=== PATIENT | female | born 1955 | race Caucasian/White ===

== ENCOUNTER 2018-09-21 10:58 | Inpatient (IN) | payer BC, OTHER ==
[~2018-09-21] VITALS: Ht 160 cm; Wt 73.0 kg
[2018-09-21] VITALS (8 sets, daily range): BP systolic 150–182; BP diastolic 68–98
[2018-09-21] MEDS ORDERED: naloxone 2mg/2ml inj IV ONE ×2 (11:35→11:50)
[2018-09-21] MEDS ORDERED: normal saline 1000ML IV soln IVB ONE ×2 (11:35)
--- NOTE | 2018-09-21 11:43 | NUR ---
admin narcan, no change in pt condition. pt arousable to voice, unable to stay awake.
--- NOTE | 2018-09-21 12:25 | NUR ---
NPA PLACED WITH 15L N/C. DR NUNES IN BEDSIDE TO ASSESS PT.
[2018-09-21 12:31] LABS: BASOPHILS % (AUTO) 0.1 % (0-1); EOSINOPHILS % (AUTO) 0 % (0-6); HEMOGLOBIN 14.7 g/dl (12.0-16.0); LYMPHOCYTES # (AUTO) 0.9 X10'3 (1.1-4.8); LYMPHOCYTES % (AUTO) 9.4 % (21-51); MEAN CORPUSCULAR HEMOGLOBIN 29.1 PG (27.0-31.0); MEAN CORPUSCULAR HGB CONC 33.3 g/dL (33.0-36.5); MEAN CORPUSCULAR VOLUME 87.3 FL (78-98); MEAN PLATELET VOLUME 7.7 FL (7.4-10.4); MONOCYTES # (AUTO) 0.6 X10'3 (0-0.9); NEUTROPHILS # (AUTO) 7.9 X10'3 (1.8-7.7); NEUTROPHILS % (AUTO) 84.5 % (42-75); PLATELET COUNT 275 X10'3 (140-440); RED BLOOD COUNT 5.04 X10'6 (4.20-5.60); WHITE BLOOD COUNT 9.4 X10'3 (4.5-11.0)
--- NOTE | 2018-09-21 12:46 | NUR ---
PATIENT MOVED FROM ROOM 11 TO ER ROOM #4. PATIENT IS OBTUNDED AND SLIGHTLY RESTLESS AT PRESENT. SECOND IV SITE ESTABLISHED. O2 AT 5LPM/NC. O2 SAT 99%. TEMP FOLE INSERTED AND DRAINING LARGE AMOUNT YELLOW URINE. AT THE BEDSIDE.
[2018-09-21 12:48] LABS: URINE AMPHETAMINE SCREEN NEGATIVE (Neg); URINE BARBITUATE SCREEN NEGATIVE (Neg); URINE BENZODIAZEPINES SCREEN NEGATIVE (Neg); URINE CANNABINOID SCREEN NEGATIVE (Neg); URINE COCAINE SCREEN NEGATIVE (Neg); URINE METHADONE SCREEN NEGATIVE (Neg); URINE OPIATE SCREEN NEGATIVE (Neg); URINE PHENCYCLIDINE SCREEN NEGATIVE (Neg)
[2018-09-21 13:05] LABS: ALANINE AMINOTRANSFERASE 32 U/L (12-78); ALBUMIN 3.9 G/DL (3.4-5.0); ALBUMIN/GLOBULIN RATIO 1.2 (1.1-1.5); ALKALINE PHOSPHATASE 81 IU/L (46-116); ANION GAP 6 (8-16); ASPARTATE AMINO TRANSFERASE 26 U/L (10-37); BILIRUBIN,TOTAL 0.5 MG/DL (0.1-1.0); BLOOD UREA NITROGEN 9 MG/DL (7-18); BUN/CREATININE RATIO 12.3 (6.6-38.0); CALCIUM 8.9 MG/DL (8.5-10.1); CHLORIDE 102 MMOL/L (99-107); CREATININE 0.73 MG/DL (0.40-0.90); GLUCOSE 136 MG/DL (70-104); POTASSIUM 3.6 MMOL/L (3.5-5.1); SODIUM 135 MMOL/L (135-145); TOTAL CARBON DIOXIDE 27.2 MMOL/L (24-32); TOTAL PROTEIN 7.2 G/DL (6.4-8.2); eGFR 80 ML/MIN
[2018-09-21 13:10] LABS: ACETAMINOPHEN < 2.0 UG/ML (10-30)
[2018-09-21 13:11] LABS: ETHANOL < 0.010 GM/DL (0.0-0.010); VALPROATE < 3.0 UG/ML (50-100)
--- NOTE | 2018-09-21 14:40 | NUR ---
Sun HOWARD NP HERE AND SPEAKING WITH ABOUT PATIENT'S MEDICAL HISTORY AND EVENTS OF THE DAY.
[2018-09-21] MEDS ORDERED: ondansetron/PF 4mg/2ml inj IV PRN (15:35)
[2018-09-21] MEDS ORDERED: metoclopramide 5 mg/ml inj IV PRN (15:35)
--- NOTE | 2018-09-21 16:31 | NUR ---
REPORT TO ANNY SALCIDO ON ICU. TAKEN TO INPATIENT ROOM VIA GURNEY, IN SERIOUS, STABLE CONDITION. BELONGINGS SENT WITH PATIENT. MONITOR INTACT WITH ALARMS SET.
--- NOTE | 2018-09-21 16:45 | NUR ---
pt received pt by fletcher to room 2041. pt opens eyes to name. wont speak at present time. very sleepy with rr of 28 to waking up and setting up. jackie applied for safety of self and piv's
[2018-09-21 16:46] LABS: ABG BASE EXCESS 1.9 mmol/L (-2.0-3.0); ABG HCO3 25.8 mmol/L (22.0-26.0); ABG PCO2 (T) 38.2 mmHg (32.0-45.0); ABG PH (T) 7.447 (7.350-7.450); ABG PO2 (T) 65.4 mmHg (83-108); ALLEN'S TEST Positive; FCOHb 0.3 % (0.5-1.5); FLOW 2 L/min; FMetHb 0.3 % (0.3-1.12); FO2Hb 91.4 % (94-100); TOTAL HEMOGLOBIN 15.4 G/dl (12.0-16.0)
--- NOTE | 2018-09-21 18:15 | NUR ---
Patient in room ICU 2041. I have received report and had the opportunity to ask questions and assume patient care.
--- NOTE | 2018-09-21 18:30 | NUR ---
PT VOMITED. SUCTIONED PT. VOMIT CAME OUT PATIENTS NOSE CLOGGING AIRWAY. AIRWAY SUCTIONED AND REMOVED.
--- NOTE | 2018-09-21 19:00 | NUR ---
pt opens her eyes to voice and shaking but quickly falls asleep soon after. pt does not respond to questions or follow commands. will continue to monitor.
[2018-09-21] MEDS ORDERED: HALO5TAB PO (19:33)
[2018-09-21] MEDS ORDERED: TRAZ150T78 PO (19:33)
[2018-09-21] MEDS ORDERED: MIRT7.5T11 PO (19:33)
--- NOTE | 2018-09-21 20:05 | NUR ---
POISON CONTROL CONTACTED. RECOMMENDED ORDERS INCLUDE EKG, NEW TOX SCREEN, AND CBC. MD NOTIFIED OF RECOMMENDED ORDERS.
[2018-09-21] MEDS: famotidine/PF 10 mg/ml inj IV SCH (20:26)
[2018-09-21] MEDS: normal saline 1000ml 1,000 ML IV SCH (20:27)
[2018-09-21 21:52] LABS: BASOPHILS % (AUTO) 0.1 % (0-1); EOSINOPHILS % (AUTO) 0.1 % (0-6); HEMOGLOBIN 15.3 g/dl (12.0-16.0); LYMPHOCYTES # (AUTO) 0.7 X10'3 (1.1-4.8); LYMPHOCYTES % (AUTO) 5.3 % (21-51); MEAN CORPUSCULAR HEMOGLOBIN 29.3 PG (27.0-31.0); MEAN CORPUSCULAR HGB CONC 33.3 g/dL (33.0-36.5); MEAN CORPUSCULAR VOLUME 87.8 FL (78-98); MEAN PLATELET VOLUME 8.1 FL (7.4-10.4); MONOCYTES # (AUTO) 0.7 X10'3 (0-0.9); MONOCYTES % (AUTO) 5.4 % (2-12); NEUTROPHILS # (AUTO) 11.7 X10'3 (1.8-7.7); NEUTROPHILS % (AUTO) 89.1 % (42-75); PLATELET COUNT 293 X10'3 (140-440); RED BLOOD COUNT 5.23 X10'6 (4.20-5.60); RED CELL DISTRIBUTION WIDTH 15.2 % (11.5-14.5); WHITE BLOOD COUNT 13.1 X10'3 (4.5-11.0)
[2018-09-21 22:32] LABS: ALANINE AMINOTRANSFERASE 26 U/L (12-78); ALBUMIN 3.9 G/DL (3.4-5.0); ALBUMIN/GLOBULIN RATIO 1.1 (1.1-1.5); ALKALINE PHOSPHATASE 85 IU/L (46-116); ANION GAP 8 (8-16); ASPARTATE AMINO TRANSFERASE 20 U/L (10-37); BILIRUBIN,TOTAL 0.4 MG/DL (0.1-1.0); BLOOD UREA NITROGEN 6 MG/DL (7-18); BUN/CREATININE RATIO 8.2 (6.6-38.0); CALCIUM 8.8 MG/DL (8.5-10.1); CHLORIDE 104 MMOL/L (99-107); CREATININE 0.73 MG/DL (0.40-0.90); GLUCOSE 141 MG/DL (70-104); POTASSIUM 3.7 MMOL/L (3.5-5.1); SODIUM 140 MMOL/L (135-145); TOTAL CARBON DIOXIDE 27.6 MMOL/L (24-32); TOTAL PROTEIN 7.5 G/DL (6.4-8.2); TROPONIN I < 0.04 NG/ML (0.0-0.05); eGFR 80 ML/MIN
[2018-09-21 22:37] LABS: ACETAMINOPHEN < 2.0 UG/ML (10-30); VALPROATE < 3.0 UG/ML (50-100)
--- NOTE | 2018-09-21 23:20 | NUR ---
poison control called for follow up. recommended redrawing tox screen in am. notified.
[2018-09-22] VITALS (23 sets, daily range): BP systolic 102–172; BP diastolic 42–82
--- NOTE | 2018-09-22 01:22 | NUR ---
pt still responds to voice but remains obtunded. pt still doesn't answer questions or follow commands. will continue to monitor
--- NOTE | 2018-09-22 04:23 | NUR ---
pt o2 sat dropped to 87%. pt put on a non rebreather mask. pt airway is gurgling. nt suction ordered
[2018-09-22 04:26] LABS: ABG BASE EXCESS -3.6 mmol/L (-2.0-3.0); ABG HCO3 22.5 mmol/L (22.0-26.0); ABG PCO2 (T) 43.8 mmHg (32.0-45.0); ABG PH (T) 7.327 (7.350-7.450); ABG PO2 (T) 66.2 mmHg (83-108); ALLEN'S TEST Positive; FCOHb 0.2 % (0.5-1.5); FLOW 15 L/min; FMetHb 0.1 % (0.3-1.12); FO2Hb 92.7 % (94-100); PATIENT TEMPERATURE 36.6; TOTAL HEMOGLOBIN 15.6 G/dl (12.0-16.0)
[2018-09-22 05:49] LABS: BASOPHILS % (AUTO) 0 % (0-1); EOSINOPHILS % (AUTO) 0.1 % (0-6); HEMATOCRIT 46.2 % (35.0-45.0); HEMOGLOBIN 15.4 g/dl (12.0-16.0); LYMPHOCYTES # (AUTO) 0.8 X10'3 (1.1-4.8); LYMPHOCYTES % (AUTO) 5.8 % (21-51); MEAN CORPUSCULAR HEMOGLOBIN 29.3 PG (27.0-31.0); MEAN CORPUSCULAR HGB CONC 33.3 g/dL (33.0-36.5); MEAN PLATELET VOLUME 7.7 FL (7.4-10.4); MONOCYTES # (AUTO) 0.7 X10'3 (0-0.9); MONOCYTES % (AUTO) 5.4 % (2-12); NEUTROPHILS # (AUTO) 11.8 X10'3 (1.8-7.7); NEUTROPHILS % (AUTO) 88.7 % (42-75); PLATELET COUNT 285 X10'3 (140-440); RED BLOOD COUNT 5.25 X10'6 (4.20-5.60); RED CELL DISTRIBUTION WIDTH 15.1 % (11.5-14.5); WHITE BLOOD COUNT 13.3 X10'3 (4.5-11.0)
[2018-09-22 05:53] LABS: PARTIAL THROMBOPLASTIN TIME 27 SECONDS (22-32); PROTHROMBIN TIME 10.6 SECONDS (9.0-12.0)
[2018-09-22 06:04] LABS: ALANINE AMINOTRANSFERASE 25 U/L (12-78); ALBUMIN 3.9 G/DL (3.4-5.0); ALBUMIN/GLOBULIN RATIO 1.1 (1.1-1.5); ALKALINE PHOSPHATASE 87 IU/L (46-116); ANION GAP 9 (8-16); ASPARTATE AMINO TRANSFERASE 20 U/L (10-37); BILIRUBIN,TOTAL 0.6 MG/DL (0.1-1.0); BLOOD UREA NITROGEN 5 MG/DL (7-18); BUN/CREATININE RATIO 6.9 (6.6-38.0); CALCIUM 8.8 MG/DL (8.5-10.1); CHLORIDE 104 MMOL/L (99-107); CREATININE 0.72 MG/DL (0.40-0.90); GLUCOSE 154 MG/DL (70-104); MAGNESIUM 2.1 MG/DL (1.5-2.4); PHOSPHORUS 2.4 MG/DL (2.3-4.5); POTASSIUM 3.6 MMOL/L (3.5-5.1); SODIUM 139 MMOL/L (135-145); TOTAL CARBON DIOXIDE 26.3 MMOL/L (24-32); TOTAL PROTEIN 7.5 G/DL (6.4-8.2); eGFR 82 ML/MIN
[2018-09-22 06:09] LABS: ACETAMINOPHEN < 2.0 UG/ML (10-30); VALPROATE < 3.0 UG/ML (50-100)
--- NOTE | 2018-09-22 06:27 | NUR ---
Problems reprioritized. Patient report given, questions answered & plan of care reviewed with sheri aguilar.
[2018-09-22] MEDS: normal saline 1000ml 1,000 ML IV SCH ×2 (08:44→22:45)
[2018-09-22] MEDS: famotidine/PF 10 mg/ml inj IV SCH (08:44)
--- NOTE | 2018-09-22 09:12 | NUR ---
0600 Patient in room ICU 2041. I have received report from Joann and had the opportunity to ask questions and assume patient care.
--- NOTE | 2018-09-22 09:12 | NUR ---
0700 Pt not arousable, pupils pin point, sat 85 on mask, repositioned and placed on non rebreather, no improvement, NT suction for copious thick sputum mixed with blood (right nare lightly bleeding). Pt did rouse with NT suction, trying to swat at nurses hands, not following commands or gag. Sats immediately improved, placed back on 6lt simple mask 0900 Pt rousable to verbal stimuli, sats decrease to 83% able to awaken and cough with vigorous stimuli with sat up to 94%. Unable to expectorate but strong cough present
--- NOTE | 2018-09-22 10:02 | NUR ---
1000- pt more awake, wanted a drink of H20, able to take a little sip, talking remains a little garbled, asked patient what she took, patient does not know, indicates a handful. When asked if she was trying to kill herself, she states yes. Starts talking about the son who most of which is incomprehensible. Addendum: 09/22/18 at 1005 by Tony Stephenson RN Reported that patient confirmed this was a suicide attempt to Dr Barnard
[2018-09-22] MEDS: methylPREDNISolone sod succ 125mg/2ml vial IV SCH ×3 (10:38→20:37)
[2018-09-22] MEDS: piperacillin/tazo 3.375gm/50ml 50 ML IV SCH ×3 (10:58→20:38)
--- NOTE | 2018-09-22 11:33 | NUR ---
Poison control called- Recommend continuing aspirin level q 4-6 hour until aspirin level peaks, continue for 2 down trending ASA levels.
--- NOTE | 2018-09-22 12:53 | NUR ---
Memo trigger: Memo 12; skin intact. Addendum: 09/22/18 at [address] Amended: Links added.
--- NOTE | 2018-09-22 18:20 | NUR ---
Patient in room ICU 2041. I have received report from Tony MCCORMICK and had the opportunity to ask questions and assume patient care. Pt on room air, IV fluids infusing per provider orders, pt restless, reorientates easily, forgetful. All monitoring alarms audible. See interventions for more information. Will continue to monitor.
[2018-09-22] MEDS ORDERED: acetaminophen 650mg rectal suppository RC PRN (19:20)
[2018-09-22] MEDS ORDERED: acetaminophen 325mg tablet PO PRN ×2 (19:20)
[2018-09-22] MEDS ORDERED: HYDROcodone/acetaminophen 5mg/325mg tablet PO PRN (19:20)
[2018-09-22] MEDS: famotidine 20mg tablet PO SCH (20:37)
[2018-09-23] VITALS (22 sets, daily range): BP systolic 92–185; BP diastolic 38–88
[2018-09-23] MEDS: piperacillin/tazo 3.375gm/50ml 50 ML IV SCH ×4 (02:21→19:44)
[2018-09-23] MEDS: methylPREDNISolone sod succ 125mg/2ml vial IV SCH ×4 (02:22→19:44)
[2018-09-23 05:35] LABS: BASOPHILS % (AUTO) 0 % (0-1); EOSINOPHILS % (AUTO) 0 % (0-6); HEMATOCRIT 43.5 % (35.0-45.0); HEMOGLOBIN 14.6 g/dl (12.0-16.0); LYMPHOCYTES # (AUTO) 0.6 X10'3 (1.1-4.8); LYMPHOCYTES % (AUTO) 3.9 % (21-51); MEAN CORPUSCULAR HEMOGLOBIN 29.4 PG (27.0-31.0); MEAN CORPUSCULAR HGB CONC 33.5 g/dL (33.0-36.5); MEAN CORPUSCULAR VOLUME 87.7 FL (78-98); MEAN PLATELET VOLUME 7.9 FL (7.4-10.4); MONOCYTES # (AUTO) 0.3 X10'3 (0-0.9); MONOCYTES % (AUTO) 2.1 % (2-12); PLATELET COUNT 301 X10'3 (140-440); RED BLOOD COUNT 4.96 X10'6 (4.20-5.60); RED CELL DISTRIBUTION WIDTH 15.2 % (11.5-14.5); WHITE BLOOD COUNT 14.9 X10'3 (4.5-11.0)
[2018-09-23 05:59] LABS: ALANINE AMINOTRANSFERASE 25 U/L (12-78); ALBUMIN 3.2 G/DL (3.4-5.0); ALBUMIN/GLOBULIN RATIO 0.9 (1.1-1.5); ALKALINE PHOSPHATASE 77 IU/L (46-116); ANION GAP 10 (8-16); ASPARTATE AMINO TRANSFERASE 15 U/L (10-37); BILIRUBIN,TOTAL 0.7 MG/DL (0.1-1.0); BLOOD UREA NITROGEN 11 MG/DL (7-18); BUN/CREATININE RATIO 15.9 (6.6-38.0); CALCIUM 9.2 MG/DL (8.5-10.1); CHLORIDE 109 MMOL/L (99-107); CREATININE 0.69 MG/DL (0.40-0.90); GLUCOSE 134 MG/DL (70-104); MAGNESIUM 2.2 MG/DL (1.5-2.4); PHOSPHORUS 2.1 MG/DL (2.3-4.5); POTASSIUM 3.7 MMOL/L (3.5-5.1); SODIUM 144 MMOL/L (135-145); TOTAL CARBON DIOXIDE 25.5 MMOL/L (24-32); TOTAL PROTEIN 6.9 G/DL (6.4-8.2); eGFR 86 ML/MIN
--- NOTE | 2018-09-23 06:24 | NUR ---
Problems reprioritized. Patient report given, questions answered & plan of care reviewed with Tony MCCORMICK.
--- NOTE | 2018-09-23 06:36 | NUR ---
Patient in room ICU 2041. I have received report from Jessica and had the opportunity to ask questions and assume patient care.
[2018-09-23] MEDS: famotidine 20mg tablet PO SCH ×2 (08:18→19:45)
[2018-09-23] MEDS: enoxaparin 40mg/0.4ml syringe SUBCUT SCH (08:18)
--- NOTE | 2018-09-23 10:18 | NUR ---
Rounds- Dr Estuardo Mujica for transfer upstairs call from poison control- updated labs, asa levels, ekg, per poison control they have no recommendations of tele, up to MD.
[2018-09-23] MEDS: haloperidol 5mg tablet PO SCH ×2 (11:53→19:44)
[2018-09-23] MEDS ORDERED: DIPH25CA83 PO (12:22)
[2018-09-23] MEDS ORDERED: ASCO500C15 PO (12:22)
[2018-09-23] MEDS ORDERED: MULT1TAB74 PO (12:22)
--- NOTE | 2018-09-23 18:15 | NUR ---
Patient in room ICU 2041. I have received report from Tony MCCORMICK and had the opportunity to ask questions and assume patient care. Pt in bed, in view of RN, close to nursing station. Pt on room air with spo2 at 94%, no c/o pain, no s/s of distress. All monitoring alarms audible. Will continue to monitor.
--- NOTE | 2018-09-23 21:14 | NUR ---
Report given to Skylar MCCORMICK, pt to transfer to room 4010B.
[2018-09-23] MEDS: traZODone 150mg tablet PO SCH (21:18)
[2018-09-23] MEDS: mirtazapine 15mg tablet PO SCH (21:18)
--- NOTE | 2018-09-23 21:18 | NUR ---
Spoke with Nolan Herbert NP regarding pt anxiety, pt is requesting Ativan, Nolan Herbert DIAGNOSTIC IMAGING MANAGER will input order for PRN Ativan.
[2018-09-23] MEDS ORDERED: LORazepam 0.5 MG tablet PO PRN (21:25)
--- NOTE | 2018-09-23 21:30 | NUR ---
Received report from sole trimmer Beth.
--- NOTE | 2018-09-23 21:35 | NUR ---
pt transferred to room 4010B with all belongings, pt stable on transfer.
--- NOTE | 2018-09-23 21:40 | NUR ---
Patient arrived to the floor at approximately 2130 via wheelchair with RN present. Patient requested to use the bathroom without incident prior to ambulating independently to ortho bed. Pt was orientated to staff, poc, how to operate bed and TV for which she as able to verbalize understanding. Patient was hesitant about verbalizing why she was in the hospital at this time but did acknowledge it was because she took to many pills. She also stated she was a bit nervous r/t her legs feeling wobbly when she stands. RN is the sitter at the beside at this time. Will continue to monitor.
[2018-09-24] MEDS: piperacillin/tazo 3.375gm/50ml 50 ML IV SCH ×4 (02:19→20:26)
[2018-09-24] MEDS: methylPREDNISolone sod succ 125mg/2ml vial IV SCH ×4 (02:28→20:26)
[2018-09-24 06:16] LABS: BASOPHILS % (AUTO) 0.1 % (0-1); EOSINOPHILS % (AUTO) 0 % (0-6); HEMATOCRIT 42.5 % (35.0-45.0); HEMOGLOBIN 14.1 g/dl (12.0-16.0); LYMPHOCYTES # (AUTO) 0.8 X10'3 (1.1-4.8); LYMPHOCYTES % (AUTO) 5.5 % (21-51); MEAN CORPUSCULAR HEMOGLOBIN 28.9 PG (27.0-31.0); MEAN CORPUSCULAR HGB CONC 33.2 g/dL (33.0-36.5); MEAN CORPUSCULAR VOLUME 87.2 FL (78-98); MEAN PLATELET VOLUME 7.9 FL (7.4-10.4); MONOCYTES # (AUTO) 0.5 X10'3 (0-0.9); MONOCYTES % (AUTO) 3.5 % (2-12); NEUTROPHILS # (AUTO) 13.3 X10'3 (1.8-7.7); NEUTROPHILS % (AUTO) 90.9 % (42-75); PLATELET COUNT 350 X10'3 (140-440); RED BLOOD COUNT 4.87 X10'6 (4.20-5.60); RED CELL DISTRIBUTION WIDTH 15.7 % (11.5-14.5); WHITE BLOOD COUNT 14.6 X10'3 (4.5-11.0)
--- NOTE | 2018-09-24 06:34 | NUR ---
Report given to Mary Ann MCCORMICK.
[2018-09-24 06:53] LABS: ALANINE AMINOTRANSFERASE 38 U/L (12-78); ALBUMIN 3.2 G/DL (3.4-5.0); ALBUMIN/GLOBULIN RATIO 0.9 (1.1-1.5); ALKALINE PHOSPHATASE 83 IU/L (46-116); ANION GAP 9 (8-16); ASPARTATE AMINO TRANSFERASE 18 U/L (10-37); BILIRUBIN,TOTAL 0.7 MG/DL (0.1-1.0); BLOOD UREA NITROGEN 17 MG/DL (7-18); CALCIUM 9.1 MG/DL (8.5-10.1); CHLORIDE 108 MMOL/L (99-107); CREATININE 0.81 MG/DL (0.40-0.90); GLUCOSE 147 MG/DL (70-104); MAGNESIUM 2.3 MG/DL (1.5-2.4); PHOSPHORUS 2.2 MG/DL (2.3-4.5); POTASSIUM 3.7 MMOL/L (3.5-5.1); SODIUM 143 MMOL/L (135-145); TOTAL PROTEIN 6.9 G/DL (6.4-8.2); eGFR 71 ML/MIN
[2018-09-24 07:06] VITALS: BP 155/78
[2018-09-24] MEDS: famotidine 20mg tablet PO SCH ×2 (08:40→20:26)
[2018-09-24] MEDS: enoxaparin 40mg/0.4ml syringe SUBCUT SCH (08:40)
[2018-09-24] MEDS: haloperidol 5mg tablet PO SCH ×2 (08:40→20:26)
[2018-09-24] MEDS ORDERED: magnesium hydroxide 30ml (MOM) UD suspension PO ONE (14:20)
[2018-09-24] MEDS: LORazepam 1 MG tablet PO PRN (14:35)
[2018-09-24 18:00] VITALS: BP 153/74
--- NOTE | 2018-09-24 18:15 | NUR ---
Received report from Mary Ann MCCORMICK, assumed care of patient.
[2018-09-24] MEDS: traZODone 150mg tablet PO SCH (20:26)
[2018-09-24] MEDS: mirtazapine 15mg tablet PO SCH (20:26)
[2018-09-24 22:00] VITALS: BP 149/68
[2018-09-25] MEDS: methylPREDNISolone sod succ 125mg/2ml vial IV SCH ×2 (01:40→09:07)
[2018-09-25] MEDS: piperacillin/tazo 3.375gm/50ml 50 ML IV SCH ×2 (01:40→09:06)
[2018-09-25 05:52] LABS: BASOPHILS % (AUTO) 0 % (0-1); EOSINOPHILS % (AUTO) 0 % (0-6); HEMOGLOBIN 14.2 g/dl (12.0-16.0); LYMPHOCYTES % (AUTO) 10.8 % (21-51); MEAN CORPUSCULAR HEMOGLOBIN 28.9 PG (27.0-31.0); MEAN CORPUSCULAR HGB CONC 33.1 g/dL (33.0-36.5); MEAN CORPUSCULAR VOLUME 87.4 FL (78-98); MEAN PLATELET VOLUME 7.9 FL (7.4-10.4); MONOCYTES # (AUTO) 0.2 X10'3 (0-0.9); NEUTROPHILS # (AUTO) 8.4 X10'3 (1.8-7.7); NEUTROPHILS % (AUTO) 87.2 % (42-75); PLATELET COUNT 304 X10'3 (140-440); RED BLOOD COUNT 4.91 X10'6 (4.20-5.60); RED CELL DISTRIBUTION WIDTH 15.4 % (11.5-14.5); WHITE BLOOD COUNT 9.7 X10'3 (4.5-11.0)
--- NOTE | 2018-09-25 06:22 | NUR ---
Report given to Arminda MCCORMICK.
[2018-09-25 06:27] LABS: ALANINE AMINOTRANSFERASE 31 U/L (12-78); ALBUMIN 3.1 G/DL (3.4-5.0); ALBUMIN/GLOBULIN RATIO 0.9 (1.1-1.5); ALKALINE PHOSPHATASE 79 IU/L (46-116); ANION GAP 7 (8-16); ASPARTATE AMINO TRANSFERASE 12 U/L (10-37); BILIRUBIN,TOTAL 0.7 MG/DL (0.1-1.0); BLOOD UREA NITROGEN 21 MG/DL (7-18); BUN/CREATININE RATIO 23.9 (6.6-38.0); CALCIUM 8.8 MG/DL (8.5-10.1); CHLORIDE 107 MMOL/L (99-107); CREATININE 0.88 MG/DL (0.40-0.90); GLUCOSE 159 MG/DL (70-104); MAGNESIUM 2.4 MG/DL (1.5-2.4); PHOSPHORUS 3.4 MG/DL (2.3-4.5); POTASSIUM 4.2 MMOL/L (3.5-5.1); SODIUM 141 MMOL/L (135-145); TOTAL CARBON DIOXIDE 26.7 MMOL/L (24-32); TOTAL PROTEIN 6.6 G/DL (6.4-8.2); eGFR 65 ML/MIN
[2018-09-25] MEDS: haloperidol 5mg tablet PO SCH (09:07)
[2018-09-25] MEDS: LORazepam 1 MG tablet PO PRN (09:08)
[2018-09-25] MEDS: enoxaparin 40mg/0.4ml syringe SUBCUT SCH (09:08)
[2018-09-25] MEDS: famotidine 20mg tablet PO SCH (09:08)
[2018-09-25 11:21] VITALS: BP 166/72
--- NOTE | 2018-09-25 13:42 | NUR ---
SS had t/c with [facility] [employer] Operator to facilitate pt's access to emergent MH treatment. Per discussion, pt's health insurance has provided authorization for treatment so if pt was willing to voluntarily be admitted, [facility] will admit. SS informed pt of her auth for [facility] admission @ [facility], pt was agreeable to this, [facility] informed and pt will be admitted sometime today, pending bed availability. Addendum: 09/25/18 at 1357 by Eloisa Steele SS Amended: Links added.
== END 2018-09-25 15:30 | DRG 917 ==
LOC: ER 10:58 → ED HOLD 15:33 → ICU 2S 16:35 → ORTHO 4S 09-23 21:45
PROVIDERS: ADMIT Internal Medicine Critical Care Medicine; ATTEND Internal Medicine Critical Care Medicine
DX: T50.902A Poisoning by unspecified drugs, medicaments and biological substances, intentional self-harm, initial encounter (principal); J69.0 Pneumonitis due to inhalation of food and vomit; G93.40 Encephalopathy, unspecified; R45.851 Suicidal ideations; F32.9 Major depressive disorder, single episode, unspecified; E66.9 Obesity, unspecified; F41.1 Generalized anxiety disorder; F43.10 Post-traumatic stress disorder, unspecified; G47.00 Insomnia, unspecified; R06.83 Snoring; Z68.28 Body mass index [BMI] 28.0-28.9, adult; Z88.8 Allergy status to other drugs, medicaments and biological substances; Z79.899 Other long term (current) drug therapy; Y92.89 Other specified places as the place of occurrence of the external cause
CPT/HCPCS: 36415; 36600; 71045; 80053; 80164; 80178; 80305; 80320; 80329; 82803; 82948; 83605; 83735; 84100; 84145; 84484; 85018; 85025; 85610; 85730; 87040; 87070; 93005; 96360; 97116; 97161; 97530; 99285; G0378; J1650; J2310; J2405; J2543; J2930; J3490

== ENCOUNTER 2018-09-25 10:55 | Inpatient (IN) | payer BC ==
[~2018-09-25] VITALS: Ht 161.3 cm; Wt 75.4 kg
[~2018-09-25 10:55] MED LIST: ASCO500C15 PO; DIPH25CA83 PO; HALO5TAB PO; MIRT7.5T11 PO; MULT1TAB74 PO; TRAZ150T78 PO
--- NOTE | 2018-09-25 15:25 | NUR ---
Admit Note: 1525 Pt was brought to ED by her , on 09/21/18, after having taken an unknown quantity of unknown medications. She was unable to give her own history. Patient has a history of over medicating w/suicidal ideation and MH issues, she has 2 prior 5150 holds as a year ago, and was hospitalized in a psychiatric facility about one month ago. Pt was admitted to telemetry for four days. Pt presents depressed w/tremors. She states she is tired. She does not want to talk to anyone today. She denies SI and describes desire to "get better and go home with her . Pt describes a few years of memory loss, depression, anxiety and "PTSD." Inventory completed by JONAH Godinez.
[2018-09-25] MEDS ORDERED: mag hydrox/Alum hydrox/simeth 30ml oral suspension PO PRN (15:55)
[2018-09-25] MEDS ORDERED: magnesium hydroxide 30ml (MOM) UD suspension PO PRN (15:55)
[2018-09-25] MEDS ORDERED: tuberculin, purif. prot. deriv. 5 units/0.1ml ID ONE (15:55)
[2018-09-25] MEDS ORDERED: acetaminophen 325mg tablet PO PRN (15:55)
[2018-09-25 19:32] VITALS: BP 150/76
[2018-09-25] MEDS ORDERED: mirtazapine 15mg tablet PO SCH (21:00)
[2018-09-25] MEDS ORDERED: haloperidol 5mg tablet PO SCH (21:00)
[2018-09-25] MEDS: traZODone 150mg tablet PO SCH (21:14)
[2018-09-25] MEDS: diphenhydrAMINE 25mg capsule PO SCH (21:14)
--- NOTE | 2018-09-25 23:04 | NUR ---
Nursing Progress Note: Legal hold: Voluntary Client on voluntary/involuntary status for being a danger to herself Report received from nurse with use of SBAR: Araceli Brock RN Why are they here: The was admitted to the ER on 09/21 following an overdose on an unknown amount of medications. She has a hx of depression, anxiety, and suicide attempts. While in the ER she became obtunded and was admitted to the ICU for further medical management. While in the ICU she was treated for LLL pneumonia. Assessment What has happened this shift: The patient complained of feeling tired and was resting on her bed right after dinner. She reports moderate anxiety. She stated that tonight she felt apprehensive and tired. She reports decreased concentration and focus. She stated that she fears that she has done permanent nerve damage from the overdose and stated that she had tremors but when she put her arms out no tremors were noted. No tremors were noted when she took her evening medications as well. She stated that at this time she is not feeling suicidal and that she wants to live for her family. 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 S/I, H/I: Denies A/VH: Denies Sleep: The patient stated that she has slept well the last two nights and wanted to be on the same medications ADL's: Independent Group attendance: NA Were meds taken: Medication compliant Any med S/E: denies Mental Status Exam Appearance: appropriately dressed and groomed Eye contact: Good Behavior: Cooperative Speech: moderate rate and volume. Mood: anxiety and depression Affect: WNL and congruent to circumstances Thought process: Some helplessness and hopelessness Thought Content: situational difficulties Cognition:Fair Insight: Impaired Judgment: Impaired Interventions PRN's used: NA Therapeutic interventions: One to one with the patient to assess severity of depressive symptoms and for self harm risk. Provided medication education. Restraints/seclusion/emergency medication: NA Justification of Continued Inpatient Treatment: The patient is being stabilized on psychiatric medications s/p a serious overdose on medications.
[2018-09-26] MEDS: diphenhydrAMINE 25mg capsule PO SCH (07:37)
[2018-09-26] MEDS: multivitamins, therapeutics tablet PO SCH (07:37)
[2018-09-26 07:43] VITALS: BP 169/88
[2018-09-26 07:47] LABS: HEMOGLOBIN A1C 6.8 % (4.5-6.2)
[2018-09-26 07:53] LABS: CHOL/HDL RATIO 3.8 (0.00-4.99); CHOLESTEROL 268 MG/DL (0-200); HDL CHOLESTEROL 71 MG/DL (35-60); LDL CHOLESTEROL 163 MG/DL (50-100); TRIGLYCERIDES 191 MG/DL (20-135)
[2018-09-26] MEDS: ascorbic acid 500mg tablet PO SCH ×2 (08:33→17:53)
[2018-09-26] MEDS: LORazepam 0.5 MG tablet PO PRN ×2 (11:18→15:52)
[2018-09-26] MEDS ORDERED: diphenhydrAMINE 25mg capsule PO PRN (18:05)
--- NOTE | 2018-09-26 18:16 | NUR ---
Nursing Progress Note: Legal hold: Voluntary Client on voluntary/involuntary status for being a danger to herself Report received from nurse with use of SBAR: Rafaela MCCORMICK Why are they here: The was admitted to the ER on 09/21 following an overdose on an unknown amount of medications. She has a hx of depression, anxiety, and suicide attempts. While in the ER she became obtunded and was admitted to the ICU for further medical management. While in the ICU she was treated for LLL pneumonia. Assessment What has happened this shift: Patient is met in the morning. She states that she is feeling anxious. RN administered medications as prescribed. After breakfast patient states that she is still very anxious. RN encouraged deep breathing and stretching exercises. Patient demonstrates and then reports it is not useful. Consult with Dr Tran, orders received to administer Ativan 0.5mg PRN QID. Patient states that she cannot go to group today because what she is going through, and what she has done is not the same as everyone else. She states that she cannot think of a happy place because she just thinks about what she has done. Patient met with Dr Rodriguez, strongly encouraged to attend groups, no medication changes made. Patient attends both groups. Later patient reports increased anxiety. Ativan administered as ordered. One hour later patient states she is still very anxious and has chest pain. BP 172/85, HR 81. Patient is encouraged to do grounding exercises and deep breathing. One hour later patient states that she is feeling better. S/I, H/I: Denies A/VH: Denies Sleep: slept well last night ADL's: Independent Group attendance: yes Were meds taken: Medication compliant Any med S/E: denies Mental Status Exam Appearance: appropriately dressed and groomed Eye contact: Good Behavior: Cooperative, anxious Speech: soft tone, normal rate/rhythm Mood: anxiety and depressed Affect: congruent Thought process: Some hopelessness Thought Content: focused on what she did to herself and her family Cognition: A&O x4 Insight: poor Judgment: Impaired Interventions PRN's used: NA Therapeutic interventions: One to one with the patient to assess severity of depressive symptoms and for self harm risk. Provided medication education. Restraints/seclusion/emergency medication: NA Justification of Continued Inpatient Treatment: The patient is being stabilized on psychiatric medications s/p a serious overdose on medications.
[2018-09-26 19:00] VITALS: BP 170/75
[2018-09-26] MEDS: clonazePAM 0.5mg tablet PO SCH (19:30)
[2018-09-26] MEDS: traZODone 150mg tablet PO SCH (20:27)
[2018-09-26] MEDS: mirtazapine 15mg tablet PO SCH (20:28)
--- NOTE | 2018-09-27 00:13 | NUR ---
Nursing Progress Note: Legal hold: Voluntary Client on voluntary/involuntary status for being a danger to herself Report received from nurse with use of SBAR: ANNY Oconnor Why are they here: The was admitted to the ER on 09/21 following an overdose on an unknown amount of medications. She has a hx of depression, anxiety, and suicide attempts. While in the ER she became obtunded and was admitted to the ICU for further medical management. While in the ICU she was treated for LLL pneumonia. Assessment What has happened this shift: Patient is in her room and laying in bed at the change of shift. She immediately reports anxiety, and feeling really anxious. 1:1 assessment completed at this time, she reports that it is difficult to find her "happy place" because she feels "guilty" over what she did and because of her guilt she is finding it hard to connect with her family and God again. She spoke about her episcopalian beliefs briefly and her hopes to feel forgiven so she can feel more connected with her family and God. She states that her anxiety has stayed elevated do to this feeling of guilt. She had reported chest pain on day shift, after evening 1:1 assessment patient denied chest pain and stated she feels its just her anxiety. She remained in her room in bed all shift, but did occasionally interact with her roommate. Evening medications administered as ordered and educated on, with patient verbalizing understanding. S/I, H/I: Denies A/VH: Denies Sleep: Currently sleeping, see sleep assessment ADL's: Independent Group attendance: No groups this shift Were meds taken: Medication compliant Any med S/E: Denies Mental Status Exam Appearance: Well groomed, clean clothes Eye contact: Good Behavior: Cooperative, Anxious Speech: soft tone, normal rate/rhythm Mood: Anxious Affect: Congruent Thought process: Linear Thought Content: Feelings of guilt Cognition: A&O x4 Insight: Poor Judgment: Poor Interventions PRN's used: NA Therapeutic interventions: 1:1 assessment with patient, provided active listening, maintained a safe and therapeutic environment to establish rapport. Assessed severity of depressive symptoms and for self harm risk. Provided positive reinforcement on progress made. Administered medications as ordered and provided medication education. Maintained Q 15 minute checks for safety. Justification of Continued Inpatient Treatment: The patient is being stabilized on psychiatric medications s/p a serious overdose on medications.
[2018-09-27 07:37] VITALS: BP 144/67
[2018-09-27] MEDS: multivitamins, therapeutics tablet PO SCH (07:56)
[2018-09-27] MEDS: clonazePAM 0.5mg tablet PO SCH (07:56)
[2018-09-27] MEDS: ascorbic acid 500mg tablet PO SCH ×2 (07:56→17:21)
[2018-09-27] MEDS: LORazepam 1 MG tablet PO PRN ×2 (09:29→14:12)
--- NOTE | 2018-09-27 10:43 | NUR ---
Pt reports that her face has felt numb since her most recent OD. Addendum: 09/27/18 at 1045 by Sasha Laws RN (Lee) Amended: Links added.
--- NOTE | 2018-09-27 13:50 | NUR ---
Nursing Progress Note: Legal hold: N/A Client is voluntary Report received from nurse with use of SBAR: ANNY Estrada Why are they here: The was admitted to the ER on 09/21 following an overdose on an unknown amount of medications. She has a hx of depression, anxiety, and suicide attempts. While in the ER she became obtunded and was admitted to the ICU for further medical management. While in the ICU she was treated for LLL pneumonia. Assessment What has happened this shift: Pt rated depression today at a 10/23, denies SI/HI/AH/VH. Pt rated anxiety at a 01/22, gave routine Klonopin. Pt requested and was given prn Ativan 1 mg at 0930, just came to ask this nurse if she can have something for anxiety again at this time. Pt stated that her face still felt numb and she felt tremulous from "what I did...I let God down." Asked pt to hold out her hands, very slight barely observable tremor noted. Pt stated that she has a hard time in groups as she is unable "to go to my happy place" because of the severe anxiety her guilt over her actions has caused her. She also stated that she just can't handle hearing everyone elses' stories. S/I, H/I: Pt denies A/VH: Pt denies Sleep: Slept 7.75 hours per noc shift report ADL's: Independent Group attendance: attended morning group Were meds taken: Yes Any med S/E: None observed or reported Mental Status Exam Appearance: Well groomed though slightly malodorous Eye contact: Good Behavior: Cooperative, Anxious Speech: soft tone, normal rate/rhythm Mood: Anxious Affect: Congruent Thought process: Linear Thought Content: perseverates on guilt and shame Cognition: A&O x4 Insight: Fair Judgment: Poor Interventions PRN's used: Ativan 1 mg Therapeutic interventions: 1:1 assessment, medication administration/monitoring/education, therapeutic conversation, Q 15 minute checks for safety. Justification of Continued Inpatient Treatment: The patient is being stabilized on psychiatric medications s/p a serious overdose on medications, she has severe anxiety and needs further medication adjustment.
[2018-09-27 19:00] VITALS: BP 138/78
[2018-09-27] MEDS: LORazepam 0.5 MG tablet PO PRN (20:37)
[2018-09-27] MEDS: mirtazapine 15mg tablet PO SCH (20:37)
[2018-09-27] MEDS: traZODone 150mg tablet PO SCH (20:37)
[2018-09-27] MEDS ORDERED: clonazePAM 1mg tablet PO SCH (21:00)
--- NOTE | 2018-09-27 23:08 | NUR ---
Nursing Progress Note: Legal hold: N/A Client is voluntary Report received from Mariel MCCORMICK with use of SBAR: Why are they here: The was admitted to the ER on 09/21 following an overdose on an unknown amount of medications. She has a hx of depression, anxiety, and suicide attempts. While in the ER she became obtunded and was admitted to the ICU for further medical management. While in the ICU she was treated for LLL pneumonia. Assessment What has happened this shift: Patient was in bed at change of shift and remained there throughout the evening. Rated anxiety today at a 5/10, denies depression SI/HI/AH/VH. Requested to have her meds by 2030 so she could sleep. Appeared slightly withdrawn, allowed this show card writer to complete a basic physical assessment, denied any pain. Answered questions, but did not elaborate on her feelings to this show card writer. S/I, H/I: Pt denies A/VH: Pt denies Sleep: Slept See sleep assessment ADL's: Independent Group attendance: NA Were meds taken: Yes Any med S/E: None observed or reported Mental Status Exam Appearance: Well groomed though slightly malodorous Eye contact: Good Behavior: Cooperative, Anxious Speech: soft tone, normal rate/rhythm Mood: Anxious Affect: Congruent Thought process: Linear Thought Content: unable to determine Cognition: A&O x4 Insight: Fair Judgment: Poor Interventions PRN's used: Therapeutic interventions: 1:1 assessment, medication administration/monitoring/education, therapeutic conversation, Q 15 minute checks for safety. Justification of Continued Inpatient Treatment: The patient is being stabilized on psychiatric medications s/p a serious overdose on medications, she has severe anxiety and needs further medication adjustment.
[2018-09-28] MEDS: ascorbic acid 500mg tablet PO SCH ×2 (07:43→17:30)
[2018-09-28] MEDS: multivitamins, therapeutics tablet PO SCH (07:44)
[2018-09-28] MEDS: LORazepam 0.5 MG tablet PO PRN ×3 (07:44→17:53)
[2018-09-28 07:55] VITALS: BP 156/86
[2018-09-28] MEDS: clonazePAM 1mg tablet PO SCH ×2 (08:13→20:27)
--- NOTE | 2018-09-28 13:27 | NUR ---
Nursing Progress Note: Legal hold: N/A Client is voluntary Report received from nurse with use of SBAR: ANNY Estrada Why are they here: The was admitted to the ER on 09/21 following an overdose on an unknown amount of medications. She has a hx of depression, anxiety, and suicide attempts. While in the ER she became obtunded and was admitted to the ICU for further medical management. While in the ICU she was treated for LLL pneumonia. Assessment What has happened this shift: Pt stated that her anxiety and depression were "a little better today." Pt denied SI/HI/AH/VH. Pt presents as anxious, requested something for anxiety before breakfast, medicated with prn Ativan 0.5 mg at 0744 [address] Tran about pt not having anything scheduled for anxiety in the morning, he increased routine Klonopin 1 mg to BID. Pt's visited, he wishes to speak with psychiatrist, will convey this to Dr Tran. was asking about the pt's meds and when she will be ready to be discharged, pt seems anxious to get home. Reiterated that medications are still being adjusted and that stabilization of her high levels of anxiety before return home is the best way to avoid decompensation and readmission. expressed understanding. left his name and number: Rj Padilla [phone]. Observed pt walking in the hallways and socializing with female peers, no unsafe behaviors noted. S/I, H/I: Pt denies A/VH: Pt denies Sleep: Slept 8 hours per noc shift report ADL's: Independent Group attendance: attended morning group Were meds taken: Yes Any med S/E: None observed or reported Mental Status Exam Appearance: Well groomed with makeup on, though hair somewhat greasy Eye contact: Good Behavior: Cooperative, Anxious Speech: soft tone, normal rate/rhythm Mood: Anxious Affect: Congruent Thought process: Linear Thought Content: focused on going home Cognition: A&O x4 Insight: Fair Judgment: Poor Interventions PRN's used: Ativan 0.5 mg X 2 Therapeutic interventions: 1:1 assessment, medication administration/monitoring/education, therapeutic conversation, encouragement to attend groups, encouragement to express feelings,Q 15 minute checks for safety. Justification of Continued Inpatient Treatment: The patient is being stabilized on psychiatric medications s/p a serious overdose on medications, she has severe anxiety and needs further medication adjustment, high risk for decompensation and readmission at this point.
--- NOTE | 2018-09-28 15:45 | NUR ---
Pt approached this nurse to report that she was having difficulty with elevated anxiety, had already taken 2 dose of prn Ativan this shift. Pt stated, "I know that you can't do anything medically for me but I just wanted to let you know." Discussed other methods of helping with anxiety, coping mechanisms like deep breathing, visualization, grounding, distraction. Pt stated that she had learned some things from group and she was trying to use these methods. Suggested reading or TV, pt stated they don't work because everything triggers her. When asked in what way, she explained that everything makes her think about how she has angered god. When she reads about or sees pretty khan, "it makes me think of heaven and how I might not get there." Pt remains religiously preoccupied and fearful that God will not forgive her. Therapeutic listening, reassurance, and support provided, provided chamomile tea which pt states is helpful. Pt also stated that she was reading the scripture and writing down verses that make her feel like God may forgive her.
--- NOTE | 2018-09-28 17:03 | NUR ---
Pt approached this nurse to state that reading the Bible and writing down comforting verses that make her feel God will forgive her was helpful in decreasing her anxiety.
[2018-09-28 20:00] VITALS: BP 151/75
[2018-09-28] MEDS: traZODone 150mg tablet PO SCH (20:27)
[2018-09-28] MEDS: busPIRone 5mg tablet PO SCH (20:27)
[2018-09-28] MEDS: mirtazapine 15mg tablet PO SCH (20:27)
--- NOTE | 2018-09-28 23:21 | NUR ---
ANNY PROGRESS NOTE: Legal hold: N/A Client is voluntary Report received from nurse with use of SBAR: ANNY Ocampo Why are they here: The patient was admitted from the medical floor. She was admitted to ICU after an overdose of her medications. She has history of depression, anxiety, and this is her third attempt at suicide. She was also treated for pneumonia in ICU. Assessment: What has happened this shift: The patient was seen in her room for 1:1. She patient reports that around 6 months ago, her anxiety really started becoming unbearable. She cannot describe what happened or why. She feels that her God will not forgive her for attempting suicide, and that she will be denied entry to [facility]. The patient says that she worries about this all the time. She believes that her anxiety is better and is ready to go home. She spent the evening talking to her peers and was in bed at 2029. S/I, H/I: Denies A/VH: Denies Sleep: Asleep since 2029 ADL's: Independent Group attendance: No groups at night. Were meds taken: Yes Any med S/E: None observed or reported Mental Status Exam: Appearance: Well groomed with makeup. Has lotion on her face that looks like wax. Eye contact: Good Behavior: Cooperative, Anxious Speech: Soft tone, normal rate/rhythm. Mood: Anxious Affect: Depressed Thought process: Linear, goal oriented. Thought Content: Perseverates on hoahaoism. Cognition: A&O x4 Insight: Fair Judgment: Poor Interventions PRN's used: None Therapeutic interventions: 1:1 assessment, medication administration/monitoring/education, therapeutic conversation, encouragement to attend groups, encouragement to express feelings,Q 15 minute checks for safety. Justification of Continued Inpatient Treatment: The patient is being stabilized on psychiatric medications s/p a serious overdose on medications, she has severe anxiety and needs further medication adjustment, high risk for decompensation and readmission at this point.
[2018-09-29 07:55] VITALS: BP 141/60
[2018-09-29] MEDS: clonazePAM 1mg tablet PO SCH ×2 (08:00→20:21)
[2018-09-29] MEDS: multivitamins, therapeutics tablet PO SCH (08:00)
[2018-09-29] MEDS: ascorbic acid 500mg tablet PO SCH ×2 (08:00→17:39)
[2018-09-29] MEDS: busPIRone 5mg tablet PO SCH ×3 (08:00→20:21)
[2018-09-29] MEDS: PALIPERIDONE 3 MG TAB.ER.24 PO SCH (09:27)
--- NOTE | 2018-09-29 11:52 | NUR ---
Nursing Progress Note: Legal hold: N/A Client is voluntary Report received from nurse with use of SBAR: ANNY Andrade Why are they here: The was admitted to the ER on 09/21 following an overdose on an unknown amount of medications. She has a hx of depression, anxiety, and suicide attempts. While in the ER she became obtunded and was admitted to the ICU for further medical management. While in the ICU she was treated for LLL pneumonia. Assessment What has happened this shift: Pt rated anxiety at a 5/10 today, described a sensation of feeling like she always has to be moving, states she has difficulty while lying in bed, feels like she has to constantly move her legs, denied depression/SI/HI/AH/VH. Pt requested prn Ativan with morning meds this am, reminded her that she was receiving her routine Klonopin 1 mg as well as Buspar which she started taking last night at HS. Encouraged pt to try using other coping skills and to allow her morning meds to kick in first. Reassured pt that if she needed the Ativan later, it would be available. Pt has not requested Ativan again so far this shift. Psychiatrist added order for paliperidone 3 mg daily as well as propranolol 10 mg TID, informed consent for paliperidone obtained by Dr Tran, administered first dose around 0900, no adverse reactions noted or reported. Pt did express concern that it may cause her to gain weight, encouraged pt to discuss with psychiatrist. Pt observed smiling and socializing with female peers, enjoys walking/exercising in the hallway, no unsafe behaviors noted. S/I, H/I: Pt denies A/VH: Pt denies Sleep: Reports sleeping well though had some difficulty falling asleep due to sensation of restless legs. ADL's: Independent Group attendance: No groups today Were meds taken: Yes Any med S/E: None observed or reported Mental Status Exam Appearance: Dressed, well groomed, make-up applied Eye contact: Good Behavior: Cooperative, Anxious Speech: soft tone, normal rate/rhythm Mood: Anxious Affect: Congruent Thought process: Linear Thought Content: Perseverates on feelings of guilt and shame, ruminates that God won't forgive her for SAs. Cognition: A&O x4 Insight: Fair to good Judgment: Fair Interventions PRN's used: None Therapeutic interventions: 1:1 assessment, medication administration/monitoring/education, therapeutic conversation, encouragement to express feelings, positive reinforcement for attempts at alternate coping mechanisms, reinforcement of concept of self-compassion and forgiveness, Q 15 minute checks for safety. Justification of Continued Inpatient Treatment: The patient is being stabilized on psychiatric medications s/p a serious overdose on medications, she has severe anxiety and needs further medication adjustment, was just started on Buspar last evening, and paliperidone and propranolol today, high risk for decompensation and readmission at this point.
[2018-09-29 12:55] VITALS: BP 155/72
[2018-09-29] MEDS: propranolol 10mg tablet PO SCH ×2 (12:59→20:21)
[2018-09-29] MEDS: LORazepam 0.5 MG tablet PO PRN (14:18)
[2018-09-29 19:28] VITALS: BP 143/70
[2018-09-29] MEDS: traZODone 150mg tablet PO SCH (20:21)
[2018-09-29] MEDS: mirtazapine 15mg tablet PO SCH (20:22)
--- NOTE | 2018-09-29 23:41 | NUR ---
ANNY PROGRESS NOTE: Legal hold: N/A Client is voluntary Report received from nurse with use of SBAR: ANNY Ocampo Why are they here: The patient was admitted from the medical floor. She was admitted to ICU after an overdose of her medications. She has history of depression, anxiety, and this is her third attempt at suicide. She was also treated for pneumonia in ICU. Assessment: What has happened this shift: The patient was seen in her room for 1:1. She had been walking around with another client. She reports that she's always has a feeling of restlessness, and that she has to keep moving. When she stops moving and tries to relax, her legs make her get up and move. She states that none of the medications she takes have had any effect at this time. This is adding to the anxiety she already feels. She does relate that she slept reasonably well last night and felt rested this morning. Today was a day with not much to do. She says that a movie was put on for the group, and she watched, but had to keep getting up to move. She talked on the phone today with relatives, and says that she has great support from them. She spent the majority of the evening isolated to her room, then went to sleep right after receiving HS meds. She did not ask for PRN meds tonight. S/I, H/I: Denies A/VH: Denies Sleep: reports restful sleep last night. ADL's: Independent Group attendance: No groups at night. Were meds taken: Yes Any med S/E: None observed or reported Mental Status Exam: Appearance: Well groomed with makeup. Nicely dressed, hair and face appear greasy. Eye contact: Good Behavior: Cooperative, Anxious Speech: Soft tone, normal rate/rhythm. Mood: Anxious Affect: Blunted. Thought process: Linear, goal oriented. Thought Content: Focused on what she believes might be Restless Legs Syndrome. Cognition: A&O x4 Insight: Fair Judgment: Poor Interventions PRN's used: None Therapeutic interventions: 1:1 assessment, medication administration/monitoring/education, therapeutic conversation, encouragement to attend groups, encouragement to express feelings,Q 15 minute checks for safety. Justification of Continued Inpatient Treatment: The patient is being stabilized on psychiatric medications s/p a serious overdose on medications, she has severe anxiety and needs further medication adjustment, high risk for decompensation and readmission at this point.
[2018-09-30 07:00] VITALS: BP 145/78
[2018-09-30] MEDS: clonazePAM 1mg tablet PO SCH ×2 (07:31→20:30)
[2018-09-30] MEDS: busPIRone 5mg tablet PO SCH ×2 (07:31→13:48)
[2018-09-30] MEDS: PALIPERIDONE 3 MG TAB.ER.24 PO SCH (07:31)
[2018-09-30] MEDS: multivitamins, therapeutics tablet PO SCH (07:32)
[2018-09-30] MEDS: propranolol 10mg tablet PO SCH ×3 (07:32→20:30)
[2018-09-30] MEDS: ascorbic acid 500mg tablet PO SCH ×2 (08:28→17:36)
[2018-09-30] MEDS: LORazepam 0.5 MG tablet PO PRN ×2 (08:38→15:43)
[2018-09-30 14:07] VITALS: BP 139/71
--- NOTE | 2018-09-30 17:15 | NUR ---
RN PROGRESS NOTE Legal hold: N/A Client is voluntary Report received from ANNY Andrade with use of SBAR: Why are they here: The patient was admitted from the medical floor. She was admitted to ICU after an overdose of her medications. She has history of depression, anxiety, and this is her third attempt at suicide. She was also treated for pneumonia in ICU. Assessment: What has happened this shift: Patient awake upon arrival to unit. Pt. is very concerned about the feeling of being restless, that she can't lay down. Reports that she did not sleep very well last night due to symptoms. Patient requested Ativan x 2 today. This afternoon she feels that the medications are starting to help her and is smiling much more readily. S/I, H/I: Denies A/VH: Denies Sleep: 8.0 ADL's: Independent Group attendance: Attends groups. Were meds taken: Yes Any med S/E: None observed or reported Mental Status Exam: Appearance: Freshly showered with makeup applied. Eye contact: Good Behavior: Cooperative, Anxious Speech: Soft tone, normal rate/rhythm. Mood: Depressed. Affect: anxious Thought process: Linear, goal oriented. Thought Content: Focused on what she believes might be Restless Legs Syndrome. Cognition: A&O x4 Insight: Fair Judgment: Poor Interventions PRN's used: Ativan x 2. Therapeutic interventions: 1:1 to assess for severity of symptoms, medication administration/monitoring/education, therapeutic conversation, encouragement to attend groups, encouragement to express feelings,Q 15 minute checks for safety. Justification of Continued Inpatient Treatment: The patient is being stabilized on psychiatric medications s/p a serious overdose on medications, she has severe anxiety and needs further medication adjustment, high risk for decompensation and readmission.
[2018-09-30] MEDS ORDERED: busPIRone 15mg tablet PO SCH (20:06)
[2018-09-30] MEDS: traZODone 150mg tablet PO SCH (20:30)
[2018-09-30] MEDS: mirtazapine 15mg tablet PO SCH (20:31)
[2018-09-30 20:45] VITALS: BP 147/70
--- NOTE | 2018-09-30 22:30 | NUR ---
RN PROGRESS NOTE: Legal hold: N/A Client is voluntary. Report received from nurse with use of SBAR: ANNY Sher Why are they here: The patient was admitted from the medical floor. She was admitted to ICU after an overdose of her medications. She has history of depression, anxiety, and this is her third attempt at suicide. She was also treated for pneumonia in ICU. Assessment: What has happened this shift: The patient was seen in her room for 1:1. She stays isolated to her room most of the night. She looks like her expression is fixed with an overwhelmed affect. Her face is greasy along with her hair. She continues to be preoccupied with her belief that she won't go to [facility], even though the God she speaks of is supposed to be forgiving. Her belief seems to be fixed, and irrational. She still c/o restlessness, but reports that it might be getting better. She is hoping for better sleep tonight. She has a supportive family, and is wondering when she can go home. She took her HS meds and went to bed. S/I, H/I: Denies A/VH: Denies Sleep: reports poor sleep last night. ADL's: Independent Group attendance: No groups at night. Were meds taken: Yes Any med S/E: None observed or reported Mental Status Exam: Appearance: Well groomed with makeup. Nicely dressed, hair and face appear greasy. Eye contact: Good Behavior: Anxious, isolative. Speech: Soft tone, normal rate/rhythm. Mood: Anxious Affect: Blunted. Thought process: Linear, goal oriented. Thought Content: Preoccupied with orthodox beliefs. Cognition: A&O x4 Insight: Fair Judgment: Poor Interventions: PRN's used: Ativan x1 for anxiety. Therapeutic interventions: 1:1 assessment, medication administration/monitoring/education, therapeutic conversation, encouragement to attend groups, encouragement to express feelings,Q 15 minute checks for safety. Justification of Continued Inpatient Treatment: The patient is being stabilized on psychiatric medications s/p a serious overdose on medications, she has severe anxiety and needs further medication adjustment, high risk for decompensation and readmission at this point.
[2018-10-01 07:47] VITALS: BP 127/62
[2018-10-01] MEDS: PALIPERIDONE 3 MG TAB.ER.24 PO SCH (07:49)
[2018-10-01] MEDS: clonazePAM 1mg tablet PO SCH ×2 (07:49→20:12)
[2018-10-01] MEDS: multivitamins, therapeutics tablet PO SCH (07:49)
[2018-10-01] MEDS: ascorbic acid 500mg tablet PO SCH ×2 (07:49→17:20)
[2018-10-01] MEDS: propranolol 10mg tablet PO SCH ×3 (07:49→20:12)
[2018-10-01] MEDS: busPIRone 5mg tablet PO SCH ×3 (09:06→20:12)
--- NOTE | 2018-10-01 10:17 | NUR ---
Initial: Pt admit w/ depression s/p intentional OD. Pt denies any surgical hx yet abdominal surgical hx says yes in EMR. Pt is having islam delusions at this time per MD note. PO 100% regular diet meeting needs. A1C 6.8 w/ no hx DM; DELMIS d/w RN for accuchecks per MD approval in order to determine if carb controlled diet would be more appropriate. [facility] 09/29. Will continue to monitor. Rec: 1. monitor for carb controlled diet need 2. accuchecks per MD approval w/ A1C 6.8 3. wt per rx Addendum: 10/01/18 at [address] Amended: Links added.
[2018-10-01] MEDS: LORazepam 0.5 MG tablet PO PRN (11:12)
[2018-10-01] MEDS ORDERED: clonazePAM 1mg tablet PO ONE (12:35)
--- NOTE | 2018-10-01 13:23 | NUR ---
RN PROGRESS NOTE Legal hold: N/A Client is voluntary Report received from ANNY Andrade with use of SBAR: Why are they here: The patient was admitted from the medical floor. She was admitted to ICU after an overdose of her medications. She has history of depression, anxiety, and this is her third attempt at suicide. She was also treated for pneumonia in ICU. Assessment: What has happened this shift: Patient awoke complaining that she couldn't sleep last night because of the plastic mattress on the bed and pillow case, she states that she could not even turn herself in bed. Patient with profound anxiety today. Patient is anxious about MRI, obtained order for Klonopin to premedicate for exam. Ativan was given and was not effective. S/I, H/I: Denies A/VH: Denies Sleep: 8.25 hrs. ADL's: Independent Group attendance: Attends groups. Were meds taken: Yes Any med S/E: Reports shuffling gait, tongue feels thick. Mental Status Exam: Appearance: Patients has a mask-like appearance to her face, with lack of facial expression. Eye contact: Good Behavior: Cooperative, Anxious - wringing hands. Speech: Soft tone, normal rate/rhythm. Mood: Depressed. Affect: anxious Thought process: Slightly confused. Thought Content: Patient is focused on MRI and what it may show. Significant anxiety about possible side effects, reassurance given. Cognition: A&O x4 Insight: Fair Judgment: Poor Interventions PRN's used: Ativan x 1. Therapeutic interventions: 1:1 to assess for severity of symptoms, medication administration/monitoring/education, MRI education and support, therapeutic conversation, encouragement to attend groups, encouragement to express feelings,Q 15 minute checks for safety. Justification of Continued Inpatient Treatment: The patient is being stabilized on psychiatric medications s/p a serious overdose on medications, she has severe anxiety and needs further medication adjustment, high risk for decompensation and readmission.
[2018-10-01] MEDS ORDERED: LORazepam 1 MG tablet PO STA (17:14)
[2018-10-01 20:00] VITALS: BP 140/78
[2018-10-01] MEDS: traZODone 150mg tablet PO SCH (20:11)
[2018-10-01] MEDS: mirtazapine 15mg tablet PO SCH (20:11)
--- NOTE | 2018-10-02 01:57 | NUR ---
RN Progress Note: Legal Hold: N/A Patient is voluntary Why are they here: The patient was admitted from the medical floor. She was admitted to ICU after an overdose of her medications. She has history of depression, anxiety, and this is her third attempt at suicide. She was also treated for pneumonia in ICU. Report Received from Nikky MCCORMICK with the assist of SBAR Assessment: This shift What has happened this shift: The patient was already in her bed at the beginning of NOC shift. She had just returned from getting and MRI. She stated she was tired but had restless feeling inside that made her anxious. She was calm, cooperative and took all of her medications. Nursing assessment completed. Lungs CTAB. RR equal and non-labored. Heart RRR S1 & S2. All pulses present. No edema. Skin pink warm dry and intact. No s/s of distress. She denied any needs. After she took her medication she then has been sleeping throughout rest of shift. S/I, H/I: Denies A/VH: Denies Sleep: 10 .5 hours . ADL's: Independent Group attendance: Attends groups. Were meds taken: Yes Any med S/E: Reports shuffling gait, tongue feels thick. Mental Status Exam: Appearance: Patients has a mask-like appearance to her face, with lack of facial expression. Eye contact: Good Behavior: Cooperative, Anxious - wringing hands. Speech: Soft tone, normal rate/rhythm. Mood: Depressed. Affect: anxious Thought process: Slightly confused. Thought Content: Patient is focused on MRI and what it may show. Significant anxiety about possible side effects, reassurance given. Cognition: A&O x4 Insight: Fair Judgment: Poor Interventions: No prns needed or given Therapeutic interventions: 1:1 to assess for severity of symptoms, medication administration/monitoring/education, therapeutic conversation, encouragement to express feelings,Q 15 minute checks for safety. Justification of Continued Inpatient Treatment: The patient is being stabilized on psychiatric medications s/p a serious overdose on medications, she has severe anxiety and needs further medication adjustment, high risk for decompensation and readmission.
[2018-10-02] MEDS: LORazepam 0.5 MG tablet PO PRN ×3 (04:20→20:36)
[2018-10-02 07:31] VITALS: BP 165/67
[2018-10-02] MEDS: clonazePAM 1mg tablet PO SCH ×2 (07:49→19:10)
[2018-10-02] MEDS: multivitamins, therapeutics tablet PO SCH (07:49)
[2018-10-02] MEDS: propranolol 10mg tablet PO SCH ×3 (07:49→20:35)
[2018-10-02] MEDS: PALIPERIDONE 3 MG TAB.ER.24 PO SCH (07:50)
[2018-10-02] MEDS: busPIRone 5mg tablet PO SCH ×3 (07:50→20:35)
[2018-10-02] MEDS: ascorbic acid 500mg tablet PO SCH ×2 (08:40→17:27)
[2018-10-02] MEDS ORDERED: PALIPERIDONE 3 MG TAB.ER.24 PO ONE (16:50)
--- NOTE | 2018-10-02 17:00 | NUR ---
RN Progress Note: Legal Hold: N/A Patient is voluntary Why are they here: The patient was admitted from the medical floor. She was admitted to ICU after an overdose of her medications. She has history of depression, anxiety, and this is her third attempt at suicide. She was also treated for pneumonia in ICU. Report Received from Nikky RN with the assist of SBAR Assessment: What has happened this shift: Pt. very anxious all shift, frequently asking this RN for PRN medication. Pt. given ativan 0.5mg once with poor effect. Pt. states, "I can't sit down, I'm so restless. RN given now dose of Invega 3mg po. Pt requesting D/C tomorrow. RN spoke with pt.'s who said he wouldn't bring pt. home unless a good plan was in place by Dr. Tran. Pt. repots she has not been sleeping well. MRI came back negative. S/I, H/I: Denies A/VH: Denies Sleep: Pt. did not nap on day shift. ADL's: Independent Group attendance: Attends groups. Were meds taken: Yes Any med S/E: Reports restlessness. Mental Status Exam: Appearance: Patients has a mask-like appearance to her face, with lack of facial expression. Eye contact: Good Behavior: Cooperative byt anxious Speech: Soft tone, normal rate/rhythm. Mood: Anxious Affect: Congruent with mood. Thought process: Slightly confused. Thought Content: pt. perseverates on discharge and medications. Cognition: A&O x4 Insight: Fair Judgment: Poor Interventions: No prns needed or given Therapeutic interventions: 1:1 to assess for severity of symptoms, medication administration/monitoring/education, therapeutic conversation, encouragement to express feelings,Q 15 minute checks for safety. Justification of Continued Inpatient Treatment: The patient is being stabilized on psychiatric medications s/p a serious overdose on medications, she has severe anxiety and needs further medication adjustment, high risk for decompensation and readmission.
[2018-10-02 20:00] VITALS: BP 135/65
[2018-10-02] MEDS: mirtazapine 15mg tablet PO SCH (20:35)
[2018-10-02] MEDS: traZODone 150mg tablet PO SCH (20:35)
--- NOTE | 2018-10-03 02:27 | NUR ---
Nursing Progress Note: Legal hold: Voluntary Client on voluntary/involuntary status for DTS Report received from nurse with use of SBAR: ANNY Mills Why are they here: Pt. admitted to [facility] from ICU after an attempted medication overdose and aspiration pneumonia. She was originally brought into the ER by her following an OD on medications. Pt. reported she has always been an anxious person, however it had become worse over the last 1.5 years and she had been experiencing panic attacks and had stopped taking medications. Pt. has two previous overdose attempts, requiring her previous admission to [facility] and [facility]. Pt. had previously experienced the of her son who was shot on the highway, and had recently had contact with her son's and children. Pt's believes this may have triggered her. Pt. also reports a religion preoccupation, and admits that she had stopped attending a nondenominational group and feels guilty for this. Assessment What has happened this shift: Pt. on the phone pacing in the hallway at the beginning of the shift, this ad writer introduced herself and asked pt. how she was doing? Pt. stated, "I'm not good, my anxiety is so high that I can't nap, and when I try to lay down my heart pounds." This ad writer administered scheduled Clonazepam and educated pt. that she had one more Ativan available later if needed, pt. voiced understanding and proceeded to lay down in bed with the room lights off. 1:1 completed at bedside, pt. denies S/I or depression. She reports her main issues are anxiety and insomnia and reports that the Clonazepam taken earlier was ineffective. Pt. states, "I have a fear in the center of my chest." When questioned by this ad writer about what triggers this fear pt. reported that she would rather not say. However, pt. did report that her son is very supportive of her and she was happy that she was able to speak on the phone with him today. S/I, H/I: Denies A/VH: N/A Sleep: Pt. presents with a preoccupation with sleep, and reports both difficulty falling and remaining asleep. Pt. administered PRN Ativan with HS mediations per request, she was encouraged by this ad writer to alert staff if unable to sleep. Pt. pressed call-light at approximately 2100 and reported to staff that she was unable to fall asleep. Staff reminded pt. that it had only been around 30 minutes since she had been administered HS medications, and they need time to take effect. Pt. voiced understanding and was able to return to sleep. ADL's: Independent Group attendance: Pt. reports she attends all groups Were meds taken: Yes Any med S/E: None Mental Status Exam Appearance: Dressed appropriately, however hair somewhat disheveled and pt. wearing bright pink lip stick. Eye contact: Fair Behavior: Cooperative, anxious, restless, fatigued. Psychomotor retardation Speech: Soft with some tremulousness and latency Mood: Pleasant, however guarded Affect: Constricted Thought process: Some poverty of thought regarding mental health Thought Content: Phobia and preoccupation with anxiety and insomnia Cognition: A&O X3 (not to place, stated hospital as [facility]) Insight: Poor to fair Judgment: Fair Interventions PRN's used: Ativan X1 Therapeutic interventions: Introduced self and attempted to establish rapport, maintained a safe and therapeutic environment, ensured contract for safety, provided medication education, observed for any changes in behavior, encouraged independent performance of ADLs, maintained a quiet environment to promote sleep, and maintained Q 15 min safety checks. Restraints/seclusion/emergency medication: N/A Justification of Continued Inpatient Treatment: Per Dr. Tran, pt. continues to present with significant anxiety which is delusional in quality. She would be a high risk for relapse if discharged at this time.
[2018-10-03] MEDS: LORazepam 0.5 MG tablet PO PRN (05:41)
--- NOTE | 2018-10-03 05:43 | NUR ---
Nursing Note: Pt. awoke with anxiety requesting PRN Ativan. She states, "I found out what's going on with me, I have a spirit of fear that never leaves me, but I don't know what to do about it." Encouraged her to share feelings with this AM, pt. voiced understanding. She reports she did sleep well.
[2018-10-03 07:48] VITALS: BP 137/72
[2018-10-03] MEDS ORDERED: PALIPERIDONE 3 MG TAB.ER.24 PO SCH (08:00)
[2018-10-03] MEDS: busPIRone 5mg tablet PO SCH ×3 (08:11→20:22)
[2018-10-03] MEDS: multivitamins, therapeutics tablet PO SCH (08:11)
[2018-10-03] MEDS: propranolol 10mg tablet PO SCH ×3 (08:11→20:22)
[2018-10-03] MEDS: clonazePAM 1mg tablet PO SCH ×2 (08:11→19:03)
[2018-10-03] MEDS: ascorbic acid 500mg tablet PO SCH ×2 (08:12→17:33)
[2018-10-03] MEDS ORDERED: propranolol 10mg tablet PO ONE ×2 (13:40→17:30)
[2018-10-03 14:17] VITALS: BP 133/67
--- NOTE | 2018-10-03 14:33 | NUR ---
Nursing Progress Note: Legal hold: Voluntary Client on voluntary/involuntary status for DTS Report received from nurse with use of SBAR: ANNY Esteban Why are they here: Pt. admitted to [facility] from ICU after an attempted medication overdose and aspiration pneumonia. She was originally brought into the ER by her following an OD on medications. Pt. reported she has always been an anxious person, however it had become worse over the last 1.5 years and she had been experiencing panic attacks and had stopped taking medications. Pt. has two previous overdose attempts, requiring her previous admission to [facility] ([place], [place]) and [facility]. Pt. had previously experienced the of her son who was shot on the highway, and had recently had contact with her son's and children. Pt's believes this may have triggered her. Pt. also reports a yarsanism preoccupation, and admits that she had stopped attending a anabaptism group and feels guilty for this. Assessment What has happened this shift: The patient was awake and walking in the hallway and talking on phone at change of shift. She does go to meals and groups with peers. she is cooperative and kind to others. It is very hard for her to attend groups for duration as she is "restless, and antsy, I just can't sit still." Patient was calling and wanting to go home (she is a voluntary patient.) She is complaining of physical symptoms of shuffling feet, her tongue feeling thick and feeling restless. Her Invega dose had been increased and she was started on Buspar. Dr. Brock was consulted, medication changes were ordered. At 1400 patient was given an additional one time dose of Inderal. At 1445 she was observed lying in bed and appears to be asleep. S/I, H/I: Denies A/VH: N/A Sleep: Napped ADL's: Independent Group attendance: Yes Were meds taken: Yes Any med S/E: None Mental Status Exam Appearance: Dressed appropriately and wearing makeup Eye contact: good Behavior: Cooperative, anxious, restless, fatigued. Psychomotor retardation Speech: Soft with some tremulousness and latency Mood: Pleasant, however guarded Affect: Constricted Thought process: Some poverty of thought regarding mental health Thought Content: preoccupation with anxiety and restlessness Cognition: A&O Insight: Poor Judgment: Poor Interventions PRN's used: Therapeutic interventions: Introduced self and attempted to establish rapport, maintained a safe and therapeutic environment, ensured contract for safety, provided medication education, observed for any changes in behavior, encouraged independent performance of ADLs, maintained a quiet environment to promote sleep, and maintained Q 15 min safety checks. Restraints/seclusion/emergency medication: N/A Justification of Continued Inpatient Treatment: Per Dr. Tran, pt. continues to present with significant anxiety which is delusional in quality. She would be a high risk for relapse if discharged at this time.
[2018-10-03 20:00] VITALS: BP 131/57
[2018-10-03] MEDS: traZODone 150mg tablet PO SCH (20:21)
[2018-10-03] MEDS: mirtazapine 15mg tablet PO SCH (20:22)
--- NOTE | 2018-10-04 02:32 | NUR ---
Nursing Progress Note: Legal hold: Voluntary Client on voluntary/involuntary status for DTS Report received from nurse with use of SBAR: ANNY Williamson Why are they here: Pt. admitted to [facility] from ICU after an attempted medication overdose and aspiration pneumonia. She was originally brought into the ER by her following an OD on medications. Pt. reported she has always been an anxious person, however it had become worse over the last 1.5 years and she had been experiencing panic attacks and had stopped taking medications. Pt. has two previous overdose attempts, requiring her previous admission to [facility] and [facility]. Pt. had previously experienced the of her son 1.5 yrs ago, who was shot [place] the highway, and had recently had contact with her son's and children. Pt's believes this may have triggered her. Pt. also reports a paranoid confucianism preoccupation, and admits that she had stopped attending an online denominational group and feels guilty for this. Assessment What has happened this shift: Pt. isolating in her room on the phone at the beginning of the shift, continued to isolate here laying in bed throughout the shift. Pt. pushed call light and requested PRN Ativan, states, "I'm so tired, I need to get some sleep." She reports she feels her last dose of Propranolol administered near change of shift was ineffective, however voices she understands that it could take up to an hour for full effect. This newswriter administered scheduled Clonazepam at 1900 and educated pt. that she could again take her PRN Ativan at HS if needed. Pt. voiced understanding and proceeded to lay down in bed with the room lights off. 1:1 completed at bedside, pt. awakened to take HS medications and presents as very fatigued. She continues to deny S/I or depression. Pt. reports on-going anxiety, however reports it is relieved at the moment and she feels calm and is able to sleep. BP and pulse obtained prior to scheduled dose of Propranolol and WNL, will continue to monitor. S/I, H/I: Denies A/VH: N/A Sleep: Pt. reports she was able to sleep well last night, and slept until 0500, which is unusual for her ADL's: Independent, however gait remains slow and lumbered Group attendance: Per AM shift, pt. attends groups, however with difficulty per her high level of anxiety and inability to sit still. Were meds taken: Yes Any med S/E: None Mental Status Exam Appearance: Neat and dressed appropriately, however continues to wear heavy makeup and bright pink lip stick. Eye contact: Good, however pt. has a somewhat fixed stare and does not blink much Behavior: Cooperative, anxious, restless, fatigued. Some psychomotor retardation Speech: Soft with some tremulousness and latency Mood: Pleasant, however fatigued Affect: Constricted Thought process: Some poverty of thought regarding mental health Thought Content: Phobia and preoccupation with anxiety and insomnia Cognition: A&O X3 (not to place, stated hospital as [facility]) Insight: Fair Judgment: Fair Interventions PRN's used: None Therapeutic interventions: Provided active listening, maintained a safe and therapeutic environment, ensured contract for safety, provided medication education, observed for any changes in behavior, encouraged independent performance of ADLs, maintained a quiet environment to promote sleep, and maintained Q 15 min safety checks. Restraints/seclusion/emergency medication: N/A Justification of Continued Inpatient Treatment: Pt. continues to present with significant anxiety and some paranoid thinking. She would be a high risk for relapse if discharged at this time.
[2018-10-04 08:00] VITALS: BP 139/64
[2018-10-04] MEDS: busPIRone 5mg tablet PO SCH ×3 (08:20→20:06)
[2018-10-04] MEDS: ascorbic acid 500mg tablet PO SCH ×2 (08:21→16:49)
[2018-10-04] MEDS: clonazePAM 1mg tablet PO SCH ×2 (08:21→20:06)
[2018-10-04] MEDS: multivitamins, therapeutics tablet PO SCH (08:21)
[2018-10-04] MEDS: propranolol 10mg tablet PO SCH ×4 (08:21→20:07)
[2018-10-04] MEDS ORDERED: propranolol 10mg tablet PO ONE (11:15)
--- NOTE | 2018-10-04 17:31 | NUR ---
Nursing Progress Note: Legal hold: Voluntary Client on voluntary/involuntary status for DTS Report received from nurse with use of SBAR: ANNY Esteban Why are they here: Pt. admitted to [facility] from ICU after an attempted medication overdose and aspiration pneumonia. She was originally brought into the ER by her following an OD on medications. Pt. reported she has always been an anxious person, however it had become worse over the last 1.5 years and she had been experiencing panic attacks and had stopped taking medications. Pt. has two previous overdose attempts, requiring her previous admission to [facility] and [facility]. Pt. had previously experienced the of her son who was shot on the highway, and had recently had contact with her son's and children. Pt's believes this may have triggered her. Pt. also reports a baptist preoccupation, and admits that she had stopped attending a yarsani group and feels guilty for this. Assessment What has happened this shift: The patient was awake and walking in the hallway and talking on phone at change of shift. She does go to meals and groups with peers. she is cooperative and kind to others. It is very hard for her to attend groups for duration as she is "restless, and antsy, I just can't sit still." Patient was calling and wanting to go home several times today. When asked what is she thinking right before she calls her she stated she feels claustrophobic and that she can't stand to go to the groups because her sins are so much bigger than everyone else's and she can't relate to others. She is easily redirected and is able to calm herself and realizes she needs more time here and more treatment. Increased dose of Inderal seems to be helping. S/I, H/I: Denies A/VH: N/A Sleep: Napped ADL's: Independent Group attendance: Yes, partially Were meds taken: Yes Any med S/E: None Mental Status Exam Appearance: Dressed appropriately and wearing makeup Eye contact: good Behavior: Cooperative, anxious, restless, fatigued. Psychomotor retardation Speech: Soft with some tremulousness and latency Mood: Pleasant, however guarded Affect: Constricted Thought process: Some poverty of thought regarding mental health Thought Content: preoccupation with anxiety and restlessness Cognition: A&O Insight: Poor Judgment: Poor Interventions PRN's used: Therapeutic interventions: Introduced self and attempted to establish rapport, maintained a safe and therapeutic environment, ensured contract for safety, provided medication education, observed for any changes in behavior, encouraged independent performance of ADLs, maintained a quiet environment to promote sleep, and maintained Q 15 min safety checks. Restraints/seclusion/emergency medication: N/A Justification of Continued Inpatient Treatment: Per Dr. Tran, pt. continues to present with significant anxiety which is delusional in quality. She would be a high risk for relapse if discharged at this time.
[2018-10-04 19:00] VITALS: BP 110/64
[2018-10-04] MEDS: traZODone 150mg tablet PO SCH (20:06)
[2018-10-04] MEDS: mirtazapine 15mg tablet PO SCH (20:06)
[2018-10-04] MEDS ORDERED: mirtazapine 15mg tablet PO SCH (21:00)
[2018-10-04] MEDS ORDERED: busPIRone 5mg tablet PO SCH (21:00)
[2018-10-04] MEDS ORDERED: propranolol 10mg tablet PO SCH (21:00)
--- NOTE | 2018-10-04 21:00 | NUR ---
Nursing Note: Dr. Brock entered new orders to increase pt's Buspar to 15mg TID, Remeron to 30 at HS, and Propranolol to 30mg TID to begin this shift. However, pt. already sleeping at time medication dosages increased, and pt. had previously received prior HS dosages. Dr. Brock notified, and orders obtained to begin increased medication dosages tomorrow, however if pt. awakens during the night administer a 1X order of the increased dosage, will monitor pt.
--- NOTE | 2018-10-05 01:47 | NUR ---
Nursing Progress Note: Legal hold: Voluntary Client on voluntary/involuntary status for DTS Report received from nurse with use of SBAR: ANNY Williamson Why are they here: Pt. admitted to [facility] from ICU after an attempted medication overdose and aspiration pneumonia. She was originally brought into the ER by her following an OD on medications. Pt. reported she has always been an anxious person, however it had become worse over the last 1.5 years and she had been experiencing panic attacks and had stopped taking medications. Pt. has two previous overdose attempts, requiring her previous admission to [facility] and [facility]. Pt. had previously experienced the of her son 1.5 yrs ago, who was shot on the highway, and had recently had contact with her son's and children. Pt's believes this may have triggered her. Pt. also reports a paranoid mandaen preoccupation, and admits that she had stopped attending an online hoahaoism group and feels guilty for this. Assessment What has happened this shift: Pt. isolating in her room at the beginning of the shift, continued to isolate here in bed throughout the shift. Pt. awoken to administer HS medications and 1:1 completed at bedside, she continues to present as cooperative, pleasant, slightly guarded, and fatigued. However, pt. does not present as restless this shift and reports she feels the increased dosage of her Propranolol is working, states, "I feel very much calmer." She continues to deny S/I or depression. BP and pulse remain WNL, will continue to monitor. Pt. educated regarding oxygen saturation monitoring that Dr. Brock would like completed tonight using pulse oximeter, pt. voiced understanding. Pulse oximeter taped to pt's finger and O2 saturation will be recorded throughout the night. Pt. advised to alert staff if needing to use the bathroom, she voiced understanding. Pt. also reports concern over her weak/shuffling gait, states, "I feel like I can hardly walk, I shuffle, and it has gotten worse over the last four days." Dr. Brock ordered a PT consult, will continue to monitor. S/I, H/I: Denies A/VH: N/A Sleep: Pt. reports she was able to sleep well last night, states, "I slept through the night and only woke up early in the morning." ADL's: Independent, however gait remains slow, slightly limited, and shuffling. PT Consult ordered. Group attendance: Per AM shift, pt. attends groups, however with difficulty per her high level of anxiety and inability to sit still. Pt. reports she went to AM group and practiced the coping skill of learning to prioritize things in order to reduce stress. Were meds taken: Yes Any med S/E: Pt is fatigued, will endorse to AM shift and monitor. Mental Status Exam Appearance: Neat and dressed appropriately, however continues to wear heavy makeup and bright pink lip stick. Eye contact: Good, however pt. has a somewhat fixed stare and does not blink much Behavior: Cooperative, fatigued, withdrawn. Some psychomotor retardation Speech: Soft with some latency Mood: Pleasant, remains slightly guarded Affect: Blunted Thought process: Some poverty of thought regarding mental health Thought Content: Phobia and preoccupation with anxiety and insomnia Cognition: A&O X4 Insight: Fair Judgment: Fair Interventions PRN's used: None Therapeutic interventions: Provided active listening, maintained a safe and therapeutic environment, ensured contract for safety, provided medication education, observed for any changes in behavior, encouraged independent performance of ADLs, maintained a quiet environment to promote sleep, HS oxygen saturation monitoring in place, obtained order for PT consult, and maintained Q 15 min safety checks. Restraints/seclusion/emergency medication: N/A Justification of Continued Inpatient Treatment: Pt. continues to present with significant anxiety and some paranoid thinking. She would be a high risk for relapse if discharged at this time. Plan is to possibly discharge on Sunday and f/u with Dr. Alfaro outpatient.
--- NOTE | 2018-10-05 05:11 | NUR ---
Nursing Note: Pt's oxygen saturation throughout the night averaged 92-93% on RA per Q 15 min checks. See Record in pt's chart for 10/04-10/05/18
[2018-10-05 08:00] VITALS: BP 131/85
[2018-10-05] MEDS: busPIRone 5mg tablet PO SCH ×3 (08:28→20:43)
[2018-10-05] MEDS: multivitamins, therapeutics tablet PO SCH (08:28)
[2018-10-05] MEDS: ascorbic acid 500mg tablet PO SCH ×2 (08:28→17:30)
[2018-10-05] MEDS: clonazePAM 1mg tablet PO SCH ×2 (08:28→20:43)
[2018-10-05] MEDS: propranolol 10mg tablet PO SCH ×3 (08:29→20:43)
[2018-10-05] MEDS: LORazepam 0.5 MG tablet PO PRN ×2 (09:37→16:20)
--- NOTE | 2018-10-05 17:48 | NUR ---
Nursing Progress Note: Legal hold: Voluntary Client on voluntary/involuntary status for DTS Report received from nurse with use of SBAR: ANNY Esteban Why are they here: Pt. admitted to [facility] from ICU after an attempted medication overdose and aspiration pneumonia. She was originally brought into the ER by her following an OD on medications. Pt. reported she has always been an anxious person, however it had become worse over the last 1.5 years and she had been experiencing panic attacks and had stopped taking medications. Pt. has two previous overdose attempts, requiring her previous admission to [facility] and [facility]. Pt. had previously experienced the of her son who was shot on the highway, and had recently had contact with her son's and children. Pt's believes this may have triggered her. Pt. also reports a lutheran preoccupation, and admits that she had stopped attending a roman catholic group and feels guilty for this. Assessment What has happened this shift: Received patient awake and walking in the hallway at change of shift. She spent time talking on phone with her . She attended groups and meals and interacted with her peers.. She is cooperative and kind to others. She complained of pain in her legs and received tylenol in afternoon. Also, c/o anxiety r/t her legs and received ativan for that anxiety X2 during this shift. She was seen by physical therapy who stated she could walk w/o walker. Patient was calling and wanting to go home several times today. She stressed several times that she was here voluntarily. She affirmed that after discharge she will see Dr Alfaro and attend the IOP program. She responds well to attention, conversation and affirmations r/t anxiety. S/I, H/I: Denies A/VH: N/A Sleep: Napped ADL's: Independent Group attendance: Yes, partially Were meds taken: Yes Any med S/E: None Mental Status Exam Appearance: Dressed appropriately and wearing makeup Eye contact: good Behavior: Cooperative, anxious, restless, fatigued. Psychomotor retardation Speech: Soft with some tremulousness and latency Mood: Pleasant, however guarded Affect: Constricted Thought process: Some poverty of thought regarding mental health Thought Content: preoccupation with anxiety and restlessness Cognition: A&O Insight: Poor Judgment: Poor Interventions PRN's used: Therapeutic interventions: Introduced self and attempted to establish rapport, maintained a safe and therapeutic environment, ensured contract for safety, provided medication education, observed for any changes in behavior, encouraged independent performance of ADLs, maintained a quiet environment to promote sleep, and maintained Q 15 min safety checks. Restraints/seclusion/emergency medication: N/A Justification of Continued Inpatient Treatment: Per Dr. Tran, pt. continues to present with significant anxiety which is delusional in quality. She would be a high risk for relapse if discharged at this time.
[2018-10-05] MEDS: traZODone 150mg tablet PO SCH (20:44)
[2018-10-05 21:00] VITALS: BP 118/60
[2018-10-05] MEDS ORDERED: mirtazapine 15mg tablet PO SCH (21:00)
--- NOTE | 2018-10-06 01:03 | NUR ---
Nursing Progress Note: Legal hold: N/A Client is voluntary. Report received from nurse with use of SBAR: ANNY Reis Why are they here: The patient was admitted from the medical floor. She was admitted to ICU after an overdose of her medications. She has history of depression, anxiety, and this is her third attempt at suicide. She was also treated for pneumonia in ICU. Assessment: What has happened this shift: The patient was found isolated to her room where she remained all shift. 1:1 completed at bedside. The patient cooperates with assessment, and says that her restlessness has improved, "but my legs are still bothering me." The patient reports that changes to her medications have made her feel a little better. She denies being depressed or thinking of harming herself. She says that daily groups have been enlightening, and she's learning coping skills and grounding techniques. Her call light is within reach and she's monitored q15 minutes for safety. She denies needs that haven't been met. S/I, H/I: Denies A/VH: Denies Sleep: "I slept ok last night." ADL's: Independent Group attendance: No groups at night. Were meds taken: Yes Any med S/E: None observed or reported Mental Status Exam: Appearance: Well groomed with makeup. Nicely dressed. Eye contact: Good Behavior: Isolative restless. Speech: Soft tone, normal rate/rhythm. Mood: Anxious Affect: Blunted. Thought process: Linear, goal oriented. Thought Content: Preoccupied with discharge. Cognition: A&O x4 Insight: Fair Judgment: Poor Interventions: PRN's used: None. Therapeutic interventions: 1:1 assessment, medication administration/monitoring/education, therapeutic conversation, encouragement to attend groups, encouragement to express feelings,Q 15 minute checks for safety. Justification of Continued Inpatient Treatment: The patient is being stabilized on psychiatric medications s/p a serious overdose on medications, she has severe anxiety and needs further medication adjustment, high risk for decompensation and readmission at this point.
[2018-10-06 07:00] VITALS: BP 130/60
[2018-10-06] MEDS: multivitamins, therapeutics tablet PO SCH (07:43)
[2018-10-06] MEDS: propranolol 10mg tablet PO SCH ×3 (07:43→20:13)
[2018-10-06] MEDS: clonazePAM 1mg tablet PO SCH ×2 (07:43→20:12)
[2018-10-06] MEDS: busPIRone 5mg tablet PO SCH ×3 (07:44→20:13)
[2018-10-06] MEDS: ascorbic acid 500mg tablet PO SCH ×2 (07:45→17:05)
[2018-10-06] MEDS: LORazepam 0.5 MG tablet PO PRN (10:37)
[2018-10-06 13:12] VITALS: BP 154/88
--- NOTE | 2018-10-06 14:48 | NUR ---
Nursing Progress Note: Legal hold: Voluntary Client on voluntary status for DTS Report received from ANNY Andrade with use of SBAR: Why are they here: Pt. admitted to [facility] from ICU after an attempted medication overdose and aspiration pneumonia. She was originally brought into the ER by her following an OD on medications. Pt. reported she has always been an anxious person, however it had become worse over the last 1.5 years and she had been experiencing panic attacks and had stopped taking medications. Pt. has two previous overdose attempts, requiring her previous admission to [facility] and [facility]. Pt. had previously experienced the of her son who was shot on the highway, and had recently had contact with her son's and children. Pt's believes this may have triggered her. Pt. also reports a jewish preoccupation, and admits that she had stopped attending a quaker group and feels guilty for this. What has happened this shift: Patient awake and makeup applied upon arrival to unit. Patient has been isolating to her room and hitting the call light in her room today, with various concerns. Ativan given for anxiety, pt requested another two hours later. Spoke with Dr. Verde regarding patients anxiety and stability. Patient reassuring provider of her safety going home. Pt states that she only has anxiety in relation to her restlessness in her legs, and that she cannot participate for very long because of her legs. Patient states that she is afraid to have her family see her like this. She has been calling her every 1-2 hrs. Assessment: S/I, H/I: Denies A/VH: Denies. Sleep: Pt. states that she is sleeping better at night. Group attendance: Movie group. Were meds taken: Compliant. Any med S/E: None reported, None observed Mental Status Exam Appearance: Patient with poor hygeine, hair is greasy and pulled back, will not wash even when prompted. Wearing street clothing. Eye contact: good Behavior: Cooperative, anxious, restless, fatigued. Psychomotor retardation Speech: Soft with some tremulousness and latency Mood: Pleasant, however guarded Affect: Constricted Thought process: Some poverty of thought regarding mental health Thought Content: preoccupation with anxiety and restlessness Cognition: A&O x 4. Insight: Poor Judgment: Poor Interventions PRN's used: Ativan. Therapeutic interventions: Maintained a safe and therapeutic environment, ensured contract for safety, provided medication education, observed for any changes in behavior, encouraged independent performance of ADLs, and maintained Q 15 min safety checks. Restraints/seclusion/emergency medication: N/A Justification of Continued Inpatient Treatment: Patient has significant anxiety with restlessness of her legs that has not improved. Had three way conversation with patient and Dr. Brock. Patient is desiring to be discharged tomorrow. Due to past history of repetitive overdoses without explanation other than the feeling of restlessness that patient had prior to admittance stated that was the cause of her OD. Patient does have follow-up IOP with Dr. Alfaro.
[2018-10-06] MEDS ORDERED: clonazePAM 1mg tablet PO PRN (15:00)
[2018-10-06] MEDS ORDERED: pramipexole 0.25mg tablet PO ONE (15:00)
[2018-10-06 20:00] VITALS: BP 128/63
[2018-10-06] MEDS: traZODone 150mg tablet PO SCH (20:14)
[2018-10-06] MEDS: pramipexole 0.25mg tablet PO SCH (20:14)
[2018-10-06] MEDS ORDERED: mirtazapine 15mg tablet PO SCH (21:00)
--- NOTE | 2018-10-07 01:29 | NUR ---
Nursing Progress Note: Legal hold: N/A Client is voluntary. Report received from nurse with use of SBAR: ANNY Sher Why are they here: The patient was admitted from the medical floor. She was admitted to ICU after an overdose of her medications. She has history of depression, anxiety, and this is her third attempt at suicide. She was also treated for pneumonia in ICU. Assessment: What has happened this shift: The patient was found in her room for 1:1. She stays isolated in her room most of the time. She reports that she's better and wants to go home. "I'm here voluntarily, and I can leave when I want." The patient still appears quite anxious, "I'm a worrier, I worry all the time" and shuffles when she walks. She says her legs hurt, and could give out on her. The patient says she doesn't want her family to see her like this, but if she leaves they will see her like this. She says that she will be "fine." The patient was agreeable with the medication changes made today, and did not request any PRNs tonight. She grudgingly showered tonight so her bedding could be change, and she appeared much better. She went to sleep right after HS med pass, and slept through her new roommates admit. S/I, H/I: Denies A/VH: Denies Sleep: Reports that she slept good. ADL's: Independent Group attendance: No groups at night. Were meds taken: Yes Any med S/E: None observed or reported Mental Status Exam: Appearance: Well groomed with makeup. Nicely dressed, freshly showered. Eye contact: Good Behavior: restless, stays in her room.. Speech: Soft tone, normal rate/rhythm. Mood: Anxious Affect: Restricted with some brightening. Thought process: Linear, goal oriented. Thought Content: Preoccupied with "restless legs". Cognition: A&O x4 Insight: Fair Judgment: Poor Interventions: PRN's used: None. Therapeutic interventions: 1:1 assessment, medication administration/monitoring/education, therapeutic conversation, encouragement to attend groups, encouragement to express feelings,Q 15 minute checks for safety. Justification of Continued Inpatient Treatment: The patient is being stabilized on psychiatric medications s/p a serious overdose on medications, she has severe anxiety and needs further medication adjustment, high risk for decompensation and readmission at this point.
[2018-10-07 08:00] VITALS: BP 153/65
[2018-10-07] MEDS: clonazePAM 1mg tablet PO SCH (08:13)
[2018-10-07] MEDS: busPIRone 5mg tablet PO SCH ×2 (08:13→13:02)
[2018-10-07] MEDS: propranolol 10mg tablet PO SCH ×2 (08:13→13:01)
[2018-10-07] MEDS: ascorbic acid 500mg tablet PO SCH (08:13)
[2018-10-07] MEDS: multivitamins, therapeutics tablet PO SCH (08:14)
[2018-10-07] MEDS: pramipexole 0.25mg tablet PO SCH ×2 (08:25→13:01)
--- NOTE | 2018-10-07 08:52 | NUR ---
NURSING NOTE Patient was given all her medications this morning including Klonopin. One hour later patient is asking for extra doses of propanolol, then came back and asked for an extra Klonopin. Patient states her anxiety is a 5.
--- NOTE | 2018-10-07 09:10 | NUR ---
NURSING NOTE: Patient requested and received 50 mg of Benadryl for anxiety.
[2018-10-07] MEDS ORDERED: BUSP5TAB26 PO (12:11)
[2018-10-07] MEDS ORDERED: REM30T PO (12:11)
[2018-10-07] MEDS ORDERED: PRAM0.258 PO (12:11)
[2018-10-07] MEDS ORDERED: PROP10TA10 PO (12:11)
[2018-10-07] MEDS ORDERED: CLON1TAB12 PO (12:11)
--- NOTE | 2018-10-07 13:00 | NUR ---
Reassessment: Patient continues to be eating well and meeting nutrition needs. Rec: 1. continue regular diet 2. weekly wt Addendum: 10/07/18 at [address] Amended: Links added.
--- NOTE | 2018-10-07 14:15 | NUR ---
DISCHARGE NOTE: Patient has been experiencing profound anxiety with "restless legs", which patient was admitted to this unit experiencing. Pt has had multiple drug overdoses requiring intubation on this visit. Sat down with patient each day for last two days, explaining to her what symptoms this RN has observed. Patient is insistent on leaving today. Dr. Verde is discharging patient with aforementioned concerns that were expressed by this RN. Went over discharge packet with Tiny and Mr. Padilla. Patient was alerted to signs and symptoms of when to call for help including going over all signs/symptoms that could lead to call emergency hot line or this unit. She is told to come back to the hospital for any of these feelings of hopelessness, feeling that she wants to take her own life. states that he will keep her medications locked up and that the safety plan for this patient depends on medications being out of her control. Patient and state understanding of all discharge instructions including follow-up appt. at Dr. Alfaro IOP at 10:25 tomorrow. Gave pt. positive affirmations to perform at home. Patient is discharged with all her belongings and medications. Pt. was walked out by this RN at 14:15.
== END 2018-10-07 14:15 | disposition home or self-care (01) | DRG 885 ==
LOC: ADULT MH 10:55
PROVIDERS: ADMIT Psychiatry & Neurology Psychiatry; ATTEND Psychiatry & Neurology Psychiatry
DX: F33.2 Major depressive disorder, recurrent severe without psychotic features (principal); F41.0 Panic disorder [episodic paroxysmal anxiety]; G25.81 Restless legs syndrome; I10 Essential (primary) hypertension; G47.00 Insomnia, unspecified; G20 Parkinson's disease; E11.9 Type 2 diabetes mellitus without complications; E78.5 Hyperlipidemia, unspecified; Z88.8 Allergy status to other drugs, medicaments and biological substances; Z91.5 Personal history of self-harm; Z79.899 Other long term (current) drug therapy
CPT/HCPCS: 36415; 70551; 80061; 83036; 97116; 97162; 97530; Q0163